=== PATIENT | male | born 1965 | race Caucasian/White ===

== ENCOUNTER 2016-07-30 10:18 | Emergency (ER) | payer MEDICAID ==
[~2016-07-30] VITALS: Ht 175.3 cm; Wt 96.0 kg
[~2016-07-30 10:18] MED LIST: ASPI81TA11 PO; LISI-363 PO
[2016-07-30 10:34] VITALS: BP 200/131; PULSE 115; RESP 16; TEMP 98.3; O2SAT 97
--- NOTE | 2016-07-30 11:09 | PD ---
HPI Chief Complaint: Complaint Time Seen by Provider: 10:54 Travel History International Travel<30 days: No Contact w/Intl Traveler<30days: No Traveled to known affect area: No History of Present Illness HPI Patient is a 51-year-old male who presents to emergency room with complaints of urinary urgency and retention. Patient reports that since last night, he has been having difficulty emptying his bladder, reports that he has urinary urgency , reports that he is unable to have a good flow of urine. Denies history of urinary retention in the past, denies dysuria, denies penile discharge. Denies fever/chills. Denies abdominal pain. Reports that he has never seen a urologist in the past and has never been diagnosed with an STD. Reports concern as he has noticed increased pain to his left groin since last night. No other c /o. PFSH Past Medical History Cardiovascular Problems: Yes (HTN) Hypertension: Yes Past Surgical History Other Surgery: Yes (HERNIA REPAIR) Social History Alcohol Use: Yes (occ) Tobacco Use: Yes (1-2 cig day) Substance Use: No Allergies-Medications (Allergen,Severity, Reaction): Coded Allergies: No Known Allergies (Unverified , 07/30/16) Reported Meds & Prescriptions Reported Meds & Active Scripts Active Reported Clonidine (Clonidine HCl) 0.1 Mg Tab 0.1 Mg PO BID Review of Systems General / Constitutional: No: Fever Eyes: No: Visual changes HENT: No: Headaches Cardiovascular: No: Chest Pain or Discomfort Respiratory: No: Shortness of Breath Gastrointestinal: No: Abdominal Pain Genitourinary: Positive: Decreased Urinary Output, Hesitancy, Other (left sided groin pain), No: Dysuria Musculoskeletal: No: Pain Skin: No Rash Neurologic: No: Weakness Psychiatric: No: Depression Endocrine: No: Polydipsia Hematologic/Lymphatic: No: Easy Bruising Physical Exam Narrative GENERAL: nad, nontoxic SKIN: Warm and dry. HEAD: Atraumatic. Normocephalic. EYES: Pupils equal and round. ENT: No nasal bleeding or discharge. Mucous membranes pink and moist. NECK: Trachea midline. No JVD. CARDIOVASCULAR: Regular rate and rhythm. No murmur appreciated. RESPIRATORY: No accessory muscle use. Clear to auscultation. Breath sounds equal bilaterally. GASTROINTESTINAL: Abdomen soft, non-tender, nondistended. Hepatic and splenic margins not palpable. : exam performed with RN at bedside, pt with uncircumcised phallus, no penile discharge, patient with no obvious inguinal hernia, testicles and vertical lie, normal cremasteric reflex MUSCULOSKELETAL: No obvious deformities. No clubbing. No cyanosis. No edema. NEUROLOGICAL: Awake and alert. Motor grossly within normal limits. Normal speech. PSYCHIATRIC: Appropriate mood and affect; insight and judgment normal. Data Data Last Documented VS Vital Signs Date Time Temp Pulse Resp B/P Pulse Ox O2 Delivery O2 Flow Rate FiO2 07/30/16 10:34 98.3 115 16 200/131 97 Orders Urinalysis - C+S If Indicated (07/30/16 11:00) Gc And Chlamydia Pcr (07/30/16 11:00) Bladder Scan PRN (07/30/16 11:00) Us Testicles W Doppler (07/30/16 ) Urine Culture (07/30/16 11:00) Labs Laboratory Tests Test 07/30/16 11:00 Urine Collection Type CLEAN CATCH Urine Color YELLOW Urine Turbidity SLIGHT Urine pH 5.5 Urine Specific [place] 1.011 Urine Protein TRACE mg/dL Urine Glucose (UA) NEG mg/dL Urine Ketones NEG mg/dL Urine Occult Blood LARGE Urine Nitrite NEG Urine Bilirubin NEG Urine Leukocyte Esterase SMALL Urine RBC 25-49 /hpf Urine WBC 100-200 /hpf Urine WBC Clumps MANY Urine Squamous Epithelial 0-5 /hpf Cells Urine Bacteria MOD /hpf Microscopic Urinalysis Comment CULTURE INDICATED Urine Collection Time 11:00 [facility] Medical Decision Making Medical Screen Exam Complete: Yes Emergency Medical Condition: Yes Interpretation(s) Vital Signs Date Time Temp Pulse Resp B/P Pulse Ox O2 Delivery O2 Flow Rate FiO2 07/30/16 10:34 98.3 115 16 200/131 97 Laboratory Tests Test 07/30/16 11:00 Urine Collection Type CLEAN CATCH Urine Color YELLOW (YELLW/STRAW) Urine Turbidity SLIGHT (CLEAR) Urine pH 5.5 (5.0-8.5) Urine Specific [place] 1.011 (1.002-1.035) Urine Protein TRACE mg/dL (NEG-TRACE) Urine Glucose (UA) NEG mg/dL (NEG) Urine Ketones NEG mg/dL (NEG) Urine Occult Blood LARGE (NEG) Urine Nitrite NEG (NEG) Urine Bilirubin NEG (NEG) Urine Leukocyte Esterase SMALL (NEG) Urine RBC 25-49 /hpf (0-3) Urine WBC 100-200 /hpf (0-5) Urine WBC Clumps MANY (NONE) Urine Squamous Epithelial 0-5 /hpf (0-5) Cells Urine Bacteria MOD /hpf (NONE) Microscopic Urinalysis Comment CULTURE INDICATED Urine Collection Time 11:00 Last Impressions Scrotum Ultrasound 07/30/16 0000 Signed Impressions: Service Date/Time: Saturday, July 30, 2016 12:03 - CONCLUSION: 1. 8mm x 6 mm cyst in the right epididymis. 2. Blood flow to the testicles is intact. 3. No intratesticular mass is seen. Marcio Greene MD Differential Diagnosis Urethritis, acute urinary retention, UTI, testicular torsion, inguinal hernia, epididymitis Narrative Course Patient is a 51-year-old male who presents to emergency room with complaints of urinary hesitancy and possibly urinary retention. Patient reports that symptoms began last night, reports that he has been having difficulty with making good urine flow and reports that he has never had this problem in the past. Denies urethral discharge, denies dysuria when he does make urine sample. exam was performed with RN at bedside- benign exam. Bladder scan ordered to evaluate for acute urinary retention. Will obtain UA and order g/c as symptoms could be secondary to urethritis as well as uti. Patient adamantly denies possibility of STDs. Testicular US ordered to evaluate for possible swelling and inflammation of the epididymis vs testicular torsion. Post void residual 29 - patient is not in acute urinary retention UA positive for infection, testicular ultrasound with 8 mm x 6 mm cyst in the right epididymis. Discussed with patient need to follow-up with urologist as outpatient. Patient was given a copy of his ultrasound report. Patient will return to ER as needed. Signs and symptoms of testicular torsion was reviewed with patient -patient understands when to return to the emergency reviewed. Diagnosis Primary Impression: UTI (urinary tract infection) Qualified Code: N30.01 - Acute cystitis with hematuria Additional Impression: Epididymal cyst Referrals: Ronen Wyamn DO Patient Instructions: General Instructions Departure Forms: Tests/Procedures, Work Release Enter return to work date: Aug 01, 2016 Additional Instructions: Please return to the emergency room as needed Please follow up with cultures from today Please call urologist first thing in the morning for earliest follow-up Please bring your ultrasound report to your urologist office for follow-up Return to the emergency room if symptoms progress or worsen or return Med/Other Pt SpecificInfo: Prescription(s) given Scripts Levofloxacin (Levaquin)750 Mg [id number] Mg PO DAILY 7 Days Ref 0 Prov:Damari Weems DO 07/30/16 Disposition: 01 DISCHARGE HOME Condition: Stable Damari Weems DO Jul 30, 2016 11:09
[2016-07-30] MEDS ORDERED: CLON0.1T PO (11:15)
[2016-07-30 11:18] LABS: BLOOD, URINE LARGE (NEG); GLUCOSE,URINE NEG (NEG); KETONE, URINE NEG (NEG); NITRITE,URINE NEG (NEG); PH, URINE 5.5 (5.0-8.5)
[2016-07-30 11:23] LABS: METHOD OF COLLECTION CLEAN CATCH; URINE COLOR YELLOW (YELLW/STRAW)
[2016-07-30 11:24] LABS: WBC, URINE 100-200 /hpf (0-5)
[2016-07-30 11:25] LABS: BACTERIA, URINE MOD /hpf; COMMENT (UR) CULTURE INDICATED; CULTURE IF INDICATED CULTURE INDICATED; SQUAMOUS EPITHELIAL CELL URINE 0-5 /hpf (0-5)
--- NOTE | 2016-07-30 13:07 | RADHPO ---
EXAM DATE/TIME: 07/30/2016 12:03 [facility] COMPARISON: No previous studies available for comparison. INDICATIONS : Testicle pain. MEDICAL HISTORY : Hypertension. Urinary urgency. Left groin pain. SURGICAL HISTORY : Hernia repair. ENCOUNTER: Initial ACUITY: 1 day PAIN SCORE: 3/10 LOCATION: Left testicle. MEASUREMENTS: RIGHT TESTICLE: 2.9 x 2.4 x 4.0cm LEFT TESTICLE: 3.4 x 2.2 x 3.7cm FINDINGS: RIGHT TESTICLE: Homogeneous echotexture without intra or extratesticular mass. Blood flow is symmetric and within no rmal limits. No hydrocele or varicocele. Epididymis demonstrates a 0.8 x 0.4 x 0.6 cm cyst. LEFT TESTICLE: Homogeneous echotexture without intra or extratesticular mass. Blood flow is symmetric and within no rmal limits. No hydrocele or varicocele. Epididymis is within normal limits. SCROTUM: Within normal limits. CONCLUSION: 1. 8mm x 6 mm cyst in the right epididymis. 2. Blood flow to the testicles is intact. 3. No intratesticular mass is seen. Marcio Greene MD on July 30, 2016 at 13:04 Board Certified Radiologist. This report was verified electronically.
[2016-07-30] MEDS ORDERED: LEVA750T PO (13:34)
[2016-07-30] MEDS ORDERED: LEVOFLOXACIN 750 MG TAB PO ONE (13:45)
[2016-07-30 13:50] VITALS: BP 191/88
[2016-07-30 16:14] LABS: CHLAMYDIA PCR NOT DETECTED (NOT DETECT); NEISSERIA PCR NOT DETECTED (NOT DETECT)
== END 2016-07-30 13:51 | disposition home or self-care (01) ==
LOC: PHED 10:18
DX: N30.01 Acute cystitis with hematuria (principal); B96.89 Other specified bacterial agents as the cause of diseases classified elsewhere; N50.3 Cyst of epididymis
CPT/HCPCS: 76870; 81001; 87077; 87086; 87186; 87491; 87591; 93975

== ENCOUNTER 2017-09-22 10:49 | Inpatient (IN) | payer MEDICAID ==
[2017-09-22] VITALS (17 sets, daily range): BP systolic 131–215; BP diastolic 57–129; PULSE 93–122; RESP 16–21; TEMP 97.8–98.6; O2SAT 0–100
[~2017-09-22] VITALS: Ht 175.3 cm; Wt 96.7 kg
[~2017-09-22 10:49] MED LIST changes: -ASPI81TA11 PO; +CLON0.1T PO; +LEVA750T PO; -LISI-363 PO
[2017-09-22] MEDS ORDERED: SODIUM CHLOR 0.9% 1000 ML INJ 1,000 ML IV ONE (10:53)
--- NOTE | 2017-09-22 11:10 | PD ---
HPI Chief Complaint: Stroke alert Time Seen by Provider: 10:53 Travel History International Travel<30 days: No Contact w/Intl Traveler<30days: No Traveled to known affect area: No History of Present Illness HPI The patient is a 52-year-old male who presents to the emergency department via EMS for a stroke alert. The patient's onset of symptoms were at 10 AM while at work. The patient states he became dizzy and then noticed he had difficulty using the left upper extremity. He then had some numbness and tingling the left upper extremity that extended to the leg. The patient then noted difficulty walking secondary to weakness of the left leg. He denies any accompanying headache. He does have a history of hypertension but denies any known history of hyperlipidemia, diabetes, or previous TIA/CVA. EMS states the patient's blood glucose was greater than 100 upon their arrival. Upon arrival to the emergency department the patient does note some weakness and numbness to left upper extremity as well as numbness to left lower extremity. He denies any chest pain or shortness of breath. Symptoms are moderate. Onset of symptoms at 10 AM per EMS. PFSH Past Medical History Cardiovascular Problems: Yes (HTN) Hypertension: Yes Past Surgical History Other Surgery: Yes (HERNIA REPAIR) Social History Alcohol Use: Yes (occ) Tobacco Use: Yes (1-2 cig day) Substance Use: No Allergies-Medications (Allergen,Severity, Reaction): Coded Allergies: No Known Allergies (Verified Adverse Reaction, Unknown, 09/22/17) Reported Meds & Prescriptions Reported Meds & Active Scripts Active Review of Systems Except as stated in HPI: all other systems reviewed are Neg General / Constitutional: No: Fever Eyes: No: Blurred Vision HENT: Positive: Lightheadedness, No: Headaches Cardiovascular: No: Chest Pain or Discomfort Respiratory: No: Shortness of Breath Gastrointestinal: No: Nausea, Vomiting, Abdominal Pain Musculoskeletal: Positive: Weakness Neurologic: Positive: Weakness, Dizziness, Focal Abnormalities, Paresthesia, Sensory Disturbance, No: Headache, Change in Mentation Physical Exam Narrative GENERAL: Awake, alert, pleasant 52-year-old male who appears his stated age and is in no acute respiratory distress. SKIN: Focused skin assessment warm/dry. HEAD: Atraumatic. Normocephalic. EYES: Pupils equal and round. 4 mm bilateral and reactive. ENT: No nasal bleeding or discharge. Mucous membranes pink and moist. NECK: Trachea midline. No JVD. CARDIOVASCULAR: Regular, tachycardic with a heart rate of 105. RESPIRATORY: No accessory muscle use. Clear to auscultation. Breath sounds equal bilaterally. GASTROINTESTINAL: Abdomen soft, non-tender, nondistended. No rebound tenderness. MUSCULOSKELETAL: No obvious deformities. No clubbing. No cyanosis. No edema. NEUROLOGICAL: Awake and alert. No obvious cranial nerve deficits. Patient is alert and oriented 4. EOMs are intact. No asymmetry of the face. Tongue is midline. Drift noted to the left arm and left leg. Decreased sensation to the left arm, left face, and left leg. Heel to frazier is normal. Finger to nose on left was abnormal, right was normal. Follow simple commands. PSYCHIATRIC: Appropriate mood and affect; insight and judgment normal. Data Data Last Documented VS Vital Signs Date Time Temp Pulse Resp B/P (MAP) Pulse Ox O2 Delivery O2 Flow Rate FiO2 09/22/17 11:48 97.8 93 17 137/80 (99) 98 Room Air Orders Orders Activity Bed Rest (09/22/17 ) Electrocardiogram (09/22/17 ) I-Stat Profile (09/22/17 10:53) Prothrombin Time / Inr (Pt) (09/22/17 10:53) Act Partial Throm Time (Ptt) (09/22/17 10:53) Complete Blood Count With Diff (09/22/17 10:53) Fibrinogen (09/22/17 10:53) Creatine Kinase (Cpk) (09/22/17 10:53) Troponin I (09/22/17 10:53) Ua Includes Microscopic (09/22/17 10:53) Drug Screen, Random Urine (09/22/17 10:53) Type And Screen (09/22/17 10:53) Ct Brain W/O Iv Contrast(Rout) (09/22/17 ) Cta Brain W Iv Contrast W 3d (09/22/17 10:53) Cta Neck W Iv Contrast W 3d (09/22/17 10:53) Consult Neurology (09/22/17 ) Blood Glucose (09/22/17 10:53) Ecg Monitoring (09/22/17 10:53) Neuro Checks Q2HX12,Q4H (09/22/17 10:53) Nursing Bedside Swallow Assess .ONCE (09/22/17 10:53) Iv Access Insert/Monitor (09/22/17 10:53) NPO (09/22/17 10:53) Oximetry (09/22/17 10:53) Resp Oxygen Nc Stroke (09/22/17 ) Sodium Chlor 0.9% 1000 Ml Inj (Ns 1000 M (09/22/17 10:53) Cath For Specimen (09/22/17 10:53) Nicardipine Inj (Cardene Inj) (09/22/17 11:00) (Hub Use Only)Inp Phy Cons/Ref (09/22/17 ) (Hub Use Only)Inp Phy Cons/Ref (09/22/17 ) Labetalol Inj (Trandate Inj) (09/22/17 11:45) Admit Order (Ed Use Only) (09/22/17 11:56) ^ Medication Admin Instruction (09/22/17 11:56) Notify Dr: Other (09/22/17 11:56) Phosphorus (Po4) (09/22/17 11:56) Magnesium (Mg) (09/22/17 11:56) Potassium Chlor 40 Meq Premix (Kcl 40 Me (09/22/17 12:00) Potassium Chlor 20 Meq Premix (Kcl 20 Me (09/22/17 12:00) Potassium Chloride Eff (K-Lyte Cl Eff) (09/22/17 12:00) Potassium Chlor 40 Meq Premix (Kcl 40 Me (09/22/17 12:00) Potassium Chlor 20 Meq Premix (Kcl 20 Me (09/22/17 12:00) Magnesium Sulfate Inj (Magnesium Sulfate (09/22/17 12:00) Magnesium Oxide (Mag-Ox) (09/22/17 12:00) Magnesium Sulfate Inj (Magnesium Sulfate (09/22/17 12:00) Potassium Phosphate (K-Phos) (09/22/17 12:00) Sodium Phosphate Inj (Sodium Phosphate I (09/22/17 12:00) Potassium Phosphate (K-Phos) (09/22/17 12:00) Potassium Phosphate Inj (Potassium Phosp (09/22/17 12:00) Labs Laboratory Tests Test 09/22/17 09:00 09/22/17 10:50 White Blood Count 10.4 TH/MM3 Red Blood Count 5.00 MIL/MM3 Hemoglobin 16.3 GM/DL Bedside Hemoglobin 16.0 G/DL Hematocrit 45.7 % Bedside Hematocrit 47.0 % Mean Corpuscular Volume 91.4 FL Mean Corpuscular Hemoglobin 32.6 PG Mean Corpuscular Hemoglobin Concent 35.6 % Red Cell Distribution Width 12.5 % Platelet Count 296 TH/MM3 Mean Platelet Volume 9.1 FL Neutrophils (%) (Auto) 62.5 % Lymphocytes (%) (Auto) 25.3 % Monocytes (%) (Auto) 8.6 % Eosinophils (%) (Auto) 2.5 % Basophils (%) (Auto) 1.1 % Neutrophils # (Auto) 6.5 TH/MM3 Lymphocytes # (Auto) 2.6 TH/MM3 Monocytes # (Auto) 0.9 TH/MM3 Eosinophils # (Auto) 0.3 TH/MM3 Basophils # (Auto) 0.1 TH/MM3 CBC Comment DIFF FINAL Differential Comment Prothrombin Time 10.4 SEC Prothromb Time International Ratio 1.0 RATIO Activated Partial Thromboplast Time 22.9 SEC Fibrinogen 269 mg/dL Bedside Sodium 139 MMOL/L Bedside Potassium 3.2 MMOL/L Bedside Chloride 98 MMOL/L Bedside Blood Urea Nitrogen 10 MG/DL Bedside Creatinine 1.0 MG/DL Bedside Glucose 107 MG/DL Phosphorus Level 2.2 MG/DL Magnesium Level 1.9 MG/DL Total Creatine Kinase 146 U/L Troponin I LESS THAN 0.02 NG/ML MDM Medical Screen Exam Complete: Yes Emergency Medical Condition: Yes Medical Record Reviewed: Yes EKG Prior to Arrival: Yes Differential Diagnosis Differential diagnoses include CVA, TIA, hypertensive encephalopathy, hypertensive emergency, hypertensive urgency, intracranial hemorrhage, complicated migraine, seizure. Narrative Course A stroke alert was called. IV was established, labs are drawn and sent, the patient went immediately to CT for CT the brain. I discussed the patient with the on-call neurologist, Dr. Valero, who recommends Cardene in case TPA is administered. The patient went immediately to CT, however, CT the brain reveals an intracranial hemorrhage in the right aspect of the brain which would be consistent with his left-sided symptoms. Therefore, patient was placed on Cardene with a goal of systolic less than 160 and diastolic less than 90. I discussed the patient with the reading radiologist, Dr. Johnson, who agrees the patient has a right thalamic intracranial hemorrhage, most likely hypertensive. Therefore, a call was placed to the on-call neurosurgeon, Dr. Nguyen, at 11: 08 AM. I discussed the patient with the OR staff nurses in regards to the intraparenchymal hemorrhage. No acute intervention needed. Patient's blood pressure did improve with labetalol and Cardene drip. Head of bed was placed up at 30. I discussed the patient with the on-call intensive surgical care unit scout, Dr. Martinez, who agrees with admission. Critical Care Narrative Aggregate critical care time was 45 minutes. Time to perform other separately billable procedures was not included in the critical care time. My time did not include minutes spent treating any other patients simultaneously or on activities that did not directly contribute to the patient's treatment. The services I provided to this patient were to treat and/or prevent clinically significant deterioration that could result in: Herniation, intracranial hemorrhage, encephalopathy. I provided critical care services requiring my management, as noted below: Chart data review, documentation time, medication orders and management, vital sign assessments/reviewing monitor data, ordering and reviewing lab tests, ordering and interpreting/reviewing x-rays and diagnostic studies, care of the patient and discussion of the patient with the admitting physicians. Stroke Alert NIHSS NIH Stroke Scale Result: 4 NIHSS Time Completed: 10:50 Thrombolytic Contraindications Contraindications: CT Intracranial Bleed Procedures Interpretation(s) CT the brain reveals 17 mm acute right thalamic parenchymal bleed. EKG reveals sinus tachycardia with a heart rate of 104. Nonspecific T-wave changes. Last Impressions Head CT 09/22/17 0000 Signed Impressions: Service Date/Time: Friday, September 22, 2017 11:00 - CONCLUSION: 17 mm acute right thalamic parenchymal bleed. Austin Johnson MD Laboratory Tests Test 09/22/17 10:50 White Blood Count 10.4 TH/MM3 Red Blood Count 5.00 MIL/MM3 Hemoglobin 16.3 GM/DL Bedside Hemoglobin 16.0 G/DL Hematocrit 45.7 % Bedside Hematocrit 47.0 % Mean Corpuscular Volume 91.4 FL Mean Corpuscular Hemoglobin 32.6 PG Mean Corpuscular Hemoglobin Concent 35.6 % Red Cell Distribution Width 12.5 % Platelet Count 296 TH/MM3 Mean Platelet Volume 9.1 FL Neutrophils (%) (Auto) 62.5 % Lymphocytes (%) (Auto) 25.3 % Monocytes (%) (Auto) 8.6 % Eosinophils (%) (Auto) 2.5 % Basophils (%) (Auto) 1.1 % Neutrophils # (Auto) 6.5 TH/MM3 Lymphocytes # (Auto) 2.6 TH/MM3 Monocytes # (Auto) 0.9 TH/MM3 Eosinophils # (Auto) 0.3 TH/MM3 Basophils # (Auto) 0.1 TH/MM3 CBC Comment DIFF FINAL Differential Comment Prothrombin Time 10.4 SEC Prothromb Time International Ratio 1.0 RATIO Activated Partial Thromboplast Time 22.9 SEC Fibrinogen 269 mg/dL Bedside Sodium 139 MMOL/L Bedside Potassium 3.2 MMOL/L Bedside Chloride 98 MMOL/L Bedside Blood Urea Nitrogen 10 MG/DL Bedside Creatinine 1.0 MG/DL Bedside Glucose 107 MG/DL Physician Communication Physician Communication A call was placed to the on-call neurosurgeon and scout. I discussed the patient with Dr. Martinez who agrees with admission. Diagnosis Diagnosis: Primary Impression: Intracranial hemorrhage Admitting Physician Requests: Admit Scripts No Active Prescriptions or Reported Meds Condition: Serious Narinder Chirinos MD Sep 22, 2017 11:10
[2017-09-22] MEDS: niCARdipine INJ 25 MG in SODIUM CHLOR 0.9% 250 ML INJ 240 ML IV PRN ×3 (11:11→22:51)
--- NOTE | 2017-09-22 11:12 | RADRPT ---
EXAM DATE/TIME: 09/22/2017 11:00 [facility] COMPARISON: CT BRAIN W/O CONTRAST, May 01, 2015, 5:34. INDICATIONS : Stroke alert. Left sided arm and leg weakness and tingling. RADIATION DOSE: 38.95 CTDIvol (mGy) This report was called by Dr. Johnson to Dr. Chirinos at 11: 07 AM on 09/22/17. MEDICAL HISTORY : Hypertension. SURGICAL HISTORY : None. ENCOUNTER: Initial ACUITY: 1 day PAIN SCALE: 0/10 LOCATION: cranial TECHNIQUE: Multiple contiguous axial images were obtained of the head. Using automated exposure control and adj ustment of the mA and/or kV according to patient size, radiation dose was kept as low as reasonably a chievable to obtain optimal diagnostic quality images. DICOM format image data is available electro nically for review and comparison. FINDINGS: CEREBRUM: The ventricles are normal for age. There is evidence of an acute right thalamic parenchymal bleed juve suring 17 mm. No acute infarct is noted No extra-axial fluid collections are seen. POSTERIOR FOSSA: The cerebellum and brainstem are intact. The 4th ventricle is midline. The cerebellopontine angle i s unremarkable. EXTRACRANIAL: The visualized portion of the orbits is intact. Minimal mucosal thickening is noted within the left m axillary sinus. SKULL: The calvaria is intact. No evidence of skull fracture. CONCLUSION: 17 mm acute right thalamic parenchymal bleed. Austin Johnson MD on September 22, 2017 at 11:05 Board Certified Radiologist. This report was verified electronically.
[2017-09-22 11:14] LABS: AUTOMATED NEUTROPHIL # 6.5 TH/MM3 (1.8-7.7); BASOPHIL # 0.1 TH/MM3 (0-0.2); BASOPHIL % 1.1 % (0.0-2.0); EOSINOPHIL # 0.3 TH/MM3 (0-0.4); EOSINOPHIL % 2.5 % (0.0-4.0); HEMATOCRIT 45.7 % (39.0-51.0); HEMOGLOBIN 16.3 GM/DL (13.0-17.0); LYMPH % 25.3 % (9.0-44.0); LYMPHOCYTE # 2.6 TH/MM3 (1.0-4.8); MEAN CELL VOLUME 91.4 FL (80.0-100.0); MEAN CORPUSCULAR HEMOGLOBIN 32.6 PG (27.0-34.0); MEAN CORPUSCULAR HGB CONC 35.6 % (32.0-36.0); MEAN PLATELET VOLUME 9.1 FL (7.0-11.0); MONO % 8.6 % (0.0-8.0); MONOCYTE # 0.9 TH/MM3 (0-0.9); NEUT % 62.5 % (16.0-70.0); PLATELET COUNT 296 TH/MM3 (150-450); RED CELL DISTRIBUTION WIDTH 12.5 % (11.6-17.2); WHITE BLOOD COUNT 10.4 TH/MM3 (4.0-11.0)
[2017-09-22 11:24] LABS: PROTHROMBIN TIME - PATIENT 10.4 SEC (9.8-11.6)
[2017-09-22 11:33] LABS: TROPONIN I LESS THAN 0.02 NG/ML (0.02-0.05)
[2017-09-22] MEDS ORDERED: LABETALOL HCL 100 MG/20 ML VIAL IV PUSH ONE (11:45)
[2017-09-22] MEDS ORDERED: MAGNESIUM HYDROXIDE SUSP 30 ML CUP PO PRN (12:00)
[2017-09-22] MEDS ORDERED: POTASSIUM CHLORIDE 25 MEQ EFFERVESCENT TAB PO PRN (12:00)
[2017-09-22] MEDS ORDERED: CHLORHEXIDINE GLUCONATE 2 % 1 PACK (2 CLOTHS) TOP PRN (12:00)
[2017-09-22] MEDS ORDERED: SODIUM PHOSPHATE INJ 30 MMOL in SODIUM CHLOR 0.9% 250 ML INJ 240 ML IV PRN (12:00)
[2017-09-22] MEDS ORDERED: ACETAMINOPHEN 325 MG TAB PO PRN (12:00)
[2017-09-22] MEDS ORDERED: MAGNESIUM OXIDE 400 MG TAB PO PRN (12:00)
[2017-09-22] MEDS ORDERED: POTASSIUM PHOSPHATE MONOBASIC 500 MG TAB PO/TUBE PRN (12:00)
[2017-09-22] MEDS ORDERED: RESP: ALBUTEROL 2.5 MG/IPRATROPIUM 0.5 MG NEB (PRN) INH (12:00)
[2017-09-22] MEDS ORDERED: POTASSIUM CHLOR 20 MEQ PREMIX 100 ML IV PRN ×2 (12:00)
[2017-09-22] MEDS ORDERED: MAGNESIUM SULFATE INJ 4 GM in SODIUM CHLORIDE 0.9% INJ 92 ML IV PRN (12:00)
[2017-09-22] MEDS ORDERED: POTASSIUM PHOSPHATE MONOBASIC 500 MG TAB PO PRN (12:00)
[2017-09-22] MEDS ORDERED: POTASSIUM PHOSPHATE INJ 30 MMOL in SODIUM CHLOR 0.9% 250 ML INJ 250 ML IV PRN (12:00)
[2017-09-22] MEDS ORDERED: MISCELLANEOUS NURSING INFORMATION XX SCH (12:00)
[2017-09-22] MEDS ORDERED: POTASSIUM CHLOR 40 MEQ PREMIX 100 ML IV PRN ×2 (12:00)
[2017-09-22] MEDS ORDERED: MAGNESIUM SULFATE INJ 2 GM in SODIUM CHLORIDE 0.9% INJ 96 ML IV PRN (12:00)
[2017-09-22] MEDS: FAMOTIDINE 20 MG TAB PO SCH ×2 (12:32→21:22)
[2017-09-22] MEDS: NS + KCL 20 MEQ INJ 1,000 ML IV SCH ×2 (12:33→21:23)
[2017-09-22 12:45] LABS: MAGNESIUM 1.9 MG/DL (1.5-2.5); PHOSPHORUS 2.2 MG/DL (2.5-4.9)
[2017-09-22 12:59] LABS: BILIRUBIN, URINE NEG (NEG); BLOOD, URINE NEG (NEG); GLUCOSE,URINE NEG (NEG); KETONE, URINE NEG (NEG); MUCUS URINE FEW /lpf (OCC); NITRITE,URINE NEG (NEG); URINE COLOR LIGHT-YELLOW (YELLW/STRAW); URINE LEUKOCYTE ESTERASE NEG (NEG)
[2017-09-22] MEDS ORDERED: THIAMINE INJ 100 MG in SODIUM CHLORIDE 0.9% INJ 100 ML IV SCH (13:15)
--- NOTE | 2017-09-22 13:22 | HHI.HP ---
HPI Service Critical Care Medicine Primary Care Physician No Primary Care Physician Admission Diagnosis Right intraparenchymal hemorrhage Diagnosis: (1) Acute right thalamic hemorrhage Diagnosis: Principal (2) Hypertensive emergency Diagnosis: Principal (3) Hypokalemia Diagnosis: Principal (4) Hypophosphatemia Diagnosis: Principal (5) Hypertension Diagnosis: Secondary Chief Complaint: Stroke alert, acute right thalamic hemorrhage Travel History International Travel<30 Days: No Contact w/Intl Traveler <30 Da: No Traveled to Known Affected Are: No History of Present Illness Patient is a 52-year-old male who presented to the [facility] emergency department via EMS as a stroke alert. While at work patient felt dizzy and had difficulty using left upper extremity. This progressed to numbness and tingling of the left side of the body with associated difficulty walking. Patient states that he had been taking lisinopril prior for hypertension but discontinued it by himself several years ago due to lack of insurance. He occasionally checks his blood pressure at home last checked 1 month ago it was 210/110 approximately, but he did not seek any treatment as he felt fine. In the ER initial blood pressure was 236/120. Neurology Dr. Valero was also informed about stroke alert. A stat CT of the head showed acute 17 mm right thalamic hemorrhage. Cardene was initiated and titrated up to keep systolic blood pressure less than 140/90. Neurosurgery Dr. Nguyen was also consulted. I evaluated the patient in the ED. Currently patient remains on Cardene infusion, his blood pressure control is better. He feels left upper extremity strength may be improved slightly. I explained to him that more than likely management will be medical unless there is expansion of the bleed or intraventricular extension. A repeat CT of the head will be performed tomorrow. His platelet count and coags are normal at this time Review of Systems ROS Limitations: Other (as per HPI) Past Family Social History Allergies: Coded Allergies: No Known Allergies (Verified Adverse Reaction, Unknown, 09/22/17) Past Medical History Hypertension, uncontrolled Daily alcohol use Tobacco use Past Surgical History Hernia repair Reported Medications None Stop taking lisinopril years ago Active Ordered Medications Cardene gtt Family History Mother had hypertension Social History Smokes 6 cigarettes daily, drinks half a pint of rum daily Physical Exam Vital Signs Vital Signs Date Time Temp Pulse Resp B/P (MAP) Pulse Ox O2 Delivery O2 Flow Rate FiO2 09/22/17 13:03 97.8 100 17 139/79 (99) 99 Room Air 09/22/17 12:33 103 136/80 09/22/17 12:00 98 18 141/85 (103) 98 Room Air 09/22/17 11:48 97.8 93 17 137/80 (99) 98 Room Air 09/22/17 11:44 98 17 131/98 (109) 98 Room Air 09/22/17 11:35 97.8 116 17 162/94 (116) 98 Room Air 09/22/17 11:34 108 166/94 09/22/17 11:28 108 172/104 09/22/17 11:23 108 180/115 09/22/17 11:15 105 210/118 09/22/17 11:11 105 236/120 09/22/17 10:53 110 17 98 Room Air 09/22/17 10:52 18 98 Room Air 09/22/17 10:52 97.8 104 18 215/129 (157) 97 09/22/17 10:52 98 Room Air Physical Exam GENERAL: Awake, alert, pleasant 52-year-old male who appears his stated age and is in no acute respiratory distress. SKIN: Focused skin assessment warm/dry. HEAD: Atraumatic. Normocephalic. EYES: Pupils equal and round. 4 mm bilateral and reactive. ENT: No nasal bleeding or discharge. Mucous membranes pink and moist. NECK: Trachea midline. No JVD. CARDIOVASCULAR: Regular, tachycardic with a heart rate of 105. RESPIRATORY: No accessory muscle use. Clear to auscultation. Breath sounds equal bilaterally. GASTROINTESTINAL: Abdomen soft, non-tender, nondistended. No rebound tenderness. MUSCULOSKELETAL: No obvious deformities. No clubbing. No cyanosis. No edema. NEUROLOGICAL: Awake and alert. No obvious cranial nerve deficits. Patient is alert and oriented 4. EOMs are intact. No asymmetry of the face. Tongue is midline. Drift noted to the left arm and left leg. Decreased sensation to the left arm, left face, and left leg. Heel to frazier is normal. Finger to nose on left was abnormal, right was normal. Follow simple commands. PSYCHIATRIC: Appropriate mood and affect; insight and judgment normal. Laboratory Laboratory Tests Test 09/22/17 09:00 09/22/17 10:50 Urine Color LIGHT-YELLOW Urine Turbidity CLEAR Urine pH 7.0 Urine Specific [place] 1.012 Urine Protein TRACE Urine Glucose (UA) NEG Urine Ketones NEG Urine Occult Blood NEG Urine Nitrite NEG Urine Bilirubin NEG Urine Urobilinogen LESS THAN 2.0 Urine Leukocyte Esterase NEG Urine Mucus FEW Urine Opiates Screen NEG Urine Barbiturates Screen NEG Urine Amphetamines Screen NEG Urine Benzodiazepines Screen NEG Urine Cocaine Screen NEG Urine Cannabinoids Screen NEG White Blood Count 10.4 Red Blood Count 5.00 Hemoglobin 16.3 Bedside Hemoglobin 16.0 Hematocrit 45.7 Bedside Hematocrit 47.0 Mean Corpuscular Volume 91.4 Mean Corpuscular Hemoglobin 32.6 Mean Corpuscular Hemoglobin Concent 35.6 Red Cell Distribution Width 12.5 Platelet Count 296 Mean Platelet Volume 9.1 Neutrophils (%) (Auto) 62.5 Lymphocytes (%) (Auto) 25.3 Monocytes (%) (Auto) 8.6 Eosinophils (%) (Auto) 2.5 Basophils (%) (Auto) 1.1 Neutrophils # (Auto) 6.5 Lymphocytes # (Auto) 2.6 Monocytes # (Auto) 0.9 Eosinophils # (Auto) 0.3 Basophils # (Auto) 0.1 CBC Comment DIFF FINAL Differential Comment Prothrombin Time 10.4 Prothromb Time International Ratio 1.0 Activated Partial Thromboplast Time 22.9 Fibrinogen 269 Bedside Sodium 139 Bedside Potassium 3.2 Bedside Chloride 98 Bedside Blood Urea Nitrogen 10 Bedside Creatinine 1.0 Bedside Glucose 107 Phosphorus Level 2.2 Magnesium Level 1.9 Total Creatine Kinase 146 Troponin I LESS THAN 0.02 Result Diagram: 09/22/[address] of the head showed acute right thalamic hemorrhage 70 mm Septic Shock Reassessment Septic shock perfusion: reassessment completed Caprini VTE Risk Assessment Caprini VTE Risk Assessment: Mod/High Risk (score >= 2) VTE Pharm Contraindication: Hemorrhage Caprini Risk Assessment Model Point Value = 1 Point Value = 2 Point Value = 3 Point Value = 5 Age 41-60 Minor surgery BMI > 25 kg/m2 Swollen legs Varicose veins or History of unexplained or recurrent spontaneous Oral contraceptives or hormone replacement Sepsis (< 1 month) Serious lung disease, including pneumonia (< 1 month) Abnormal pulmonary function Acute myocardial infarction Congestive heart failure (< 1 month) History of inflammatory bowel disease Medical patient at bed rest Age 61-74 Arthroscopic surgery Major open surgery (> 45 min) Laparoscopic surgery (> 45 min) Malignancy Confined to bed (> 72 hours) Immobilizing plaster cast Central venous access Age >= 75 History of VTE Family history of VTE Factor V Leiden Prothrombin [id number] Lupus anticoagulant Anticardiolipin antibodies Elevated serum homocysteine Heparin-induced thrombocytopenia Other congenital or acquired thrombophilia Stroke (< 1 month) Elective arthroplasty Hip, pelvis, or leg fracture Acute spinal cord injury (< 1 month) Prophylaxis Regimen Total Risk Factor Score Risk Level Prophylaxis Regimen 0-1 Low Early ambulation 2 Moderate Order ONE of the following: *Sequential Compression Device (SCD) *Heparin 5000 units SQ BID 3-4 Higher Order ONE of the following medications: *Heparin 5000 units SQ TID *Enoxaparin/Lovenox 40 mg SQ daily (WT < 150 kg, CrCl > 30 mL/min) *Enoxaparin/Lovenox 30 mg SQ daily (WT < 150 kg, CrCl > 10-29 mL/min) *Enoxaparin/Lovenox 30 mg SQ BID (WT < 150 kg, CrCl > 30 mL/min) AND/OR *Sequential Compression Device (SCD) 5 or more Highest Order ONE of the following medications: *Heparin 5000 units SQ TID (Preferred with Epidurals) *Enoxaparin/Lovenox 40 mg SQ daily (WT < 150 kg, CrCl > 30 mL/min) *Enoxaparin/Lovenox 30 mg SQ daily (WT < 150 kg, CrCl > 10-29 mL/min) *Enoxaparin/Lovenox 30 mg SQ BID (WT < 150 kg, CrCl > 30 mL/min) AND *Sequential Compression Device (SCD) Assessment and Plan Assessment and Plan NEURO: Acute right thalamic hemorrhage Left hemiparesis Daily alcohol use -Frequent neuro checks per [facility] protocol -Repeat CT of the head in a.m. Neurosurgery Dr. Nguyen -Supplement thiamine watch for alcohol withdrawal -No indication for seizure prophylaxis -Avoid hyponatremia hyperthermia RESP: -Nasal cannula oxygen, if needed to keep saturation above 90% -DuoNeb every 6 hours as needed if needed -Counselled to quit smoking CV: Hypertensive emergency -Cardene infusion to keep systolic blood pressure less than 140 diastolic less than 90 -Start lisinopril 10 mg p.o. twice daily -Eventually will need 2D echo GI: -Speech eval and diet per recommendation -P.o. famotidine : -Monitor renal function closely. No indication for Contreras catheter ID: -Monitor closely for infection HEME: -Monitor CBC, CMP, coags ENDO: Hypokalemia Hypophosphatemia -Electrolyte replacement protocol PROPH: -Bilateral lower extremity SCDs/FROILAN. PO famotidine. Chemical DVT prophylaxis is contraindicated LINES: -Utilize peripheral IVs, central line if needed CC time 35 min Patient has acute right thalamic hemorrhage and hypertensive emergency. He is at risk for acute decompensation due to hemorrhage expansion and intraventricular hemorrhage. Closely monitor in the ICU, remains critical Code Status Full Discussed Condition With Dr. Chirinos, patient and his Debra Martinez MD Sep 22, 2017 13:22
[2017-09-22] MEDS: LISINOPRIL 10 MG TAB PO SCH ×2 (14:09→21:23)
--- NOTE | 2017-09-22 16:00 | PD.CONS ---
History of Present Illness Service Neurology Consult Requested By er Reason for Consult stroke alert Primary Care Physician No Primary Care Physician History of Present Illness 52-year-old male admitted for ICH. initially called stroke alert. ct brain showed rt thalamic ICH. not tpa candidate. bp 215/129 in er. placed on cardene gtt. pt states he lost his insurance and has been unable to get medication refills. is supposed to be on bp meds. no hx of stroke. mild headache, left ue numbness. Review of Systems ROS Limitations: Other (as per HPI) Past Family Social History Allergies: Coded Allergies: No Known Allergies (Verified Adverse Reaction, Unknown, 09/22/17) Past Medical History Hypertension, uncontrolled Tobacco use Past Surgical History Hernia repair Reported Medications None at present Family History Mother had hypertension Social History + tob, et[place]. no illicit drugs Review of Systems All other ROS: ROS reviewed as documented in chart Past Family Social History Allergies: Coded Allergies: No Known Allergies (Verified Adverse Reaction, Unknown, 09/22/17) Active Ordered Medications Current Medications Medications (Trade) Dose Ordered Sig/[place] Route Start Time Stop Time Status Last Admin Nicardipine HCl 25 mg/Sodium Chloride 250 ml @ 50 mls/hr TITRATE PRN IV 09/22/17 11:00 09/22/17 13:39 Potassium Chloride 100 ml @ 50 mls/hr Q2H PRN IV 09/22/17 12:00 Potassium Chloride 100 ml @ 50 mls/hr Q2H PRN IV 09/22/17 12:00 (K-Lyte Cl Eff) 50 meq UNSCH PRN PO 09/22/17 12:00 Potassium Chloride 100 ml @ 25 mls/hr UNSCH PRN IV 09/22/17 12:00 Potassium Chloride 100 ml @ 50 mls/hr Q2H PRN IV 09/22/17 12:00 Magnesium Sulfate 4 gm/Sodium Chloride 100 ml @ 50 mls/hr UNSCH PRN IV 09/22/17 12:00 (Mag-Ox) 800 mg UNSCH PRN PO 09/22/17 12:00 Magnesium Sulfate 2 gm/Sodium Chloride 100 ml @ 50 mls/hr UNSCH PRN IV 09/22/17 12:00 (K-Phos) 2,000 mg Q4H PRN PO 09/22/17 12:00 Sodium Phosphate 30 mmol/Sodium Chloride 250 ml @ 42 mls/hr UNSCH PRN IV 09/22/17 12:00 (K-Phos) 2,000 mg UNSCH PRN PO/TUBE 09/22/17 12:00 Potassium Phosphate 30 mmol/ Sodium Chloride 260 ml @ 42 mls/hr UNSCH PRN IV 09/22/17 12:00 Potassium Chloride/Sodium Chloride 1,000 ml @ 100 mls/hr Q10H IV 09/22/17 11:59 09/22/17 12:33 (Tylenol) 650 mg Q6H PRN PO 09/22/17 12:00 (Pepcid) 20 mg Q12HR PO 09/22/17 12:00 09/22/17 12:32 (Duoneb Neb) 1 ampule Q2HR NEB PRN INH 09/22/17 12:00 Miscellaneous Information 1 Q361D XX 09/22/17 12:00 (Chlorhexidine 2% Cloth) 3 pack Taper DAILY@04 TOP 09/23/17 04:00 09/19/18 03:59 (Chlorhexidine 2% Cloth) 3 pack UNSCH PRN TOP 09/22/17 12:00 (Hiral-Colace) 1 tab BID PO 09/22/17 21:00 (Milk Of Magnesia Liq) 30 ml Q12H PRN PO 09/22/17 12:00 Thiamine HCl 100 mg/Sodium Chloride 101 ml @ 101 mls/hr DAILY IV 09/22/17 13:15 09/22/17 14:10 (Prinivil) 10 mg Q12HR PO 09/22/17 13:15 09/22/17 14:09 Exam I&O / VS 09/22/17 09/22/17 09/23/17 15:00 23:00 07:00 Intake Total 460 ml Output Total 500 ml Balance -40 ml Intake Oral 300 ml IV Total 160 ml Output Urine Total 500 ml # Voids 1 # Bowel Movements 0 Vital Signs Date Time Temp Pulse Resp B/P (MAP) Pulse Ox O2 Delivery O2 Flow Rate FiO2 09/22/17 14:40 104 129/76 09/22/17 14:05 97.8 101 16 133/84 (100) 99 Room Air 09/22/17 13:39 98 135/86 09/22/17 13:25 97.8 99 16 132/82 (99) 99 Room Air 09/22/17 13:03 97.8 100 17 139/79 (99) 99 Room Air 09/22/17 12:33 103 136/80 09/22/17 12:00 98 18 141/85 (103) 98 Room Air 09/22/17 11:48 97.8 93 17 137/80 (99) 98 Room Air 09/22/17 11:44 98 17 131/98 (109) 98 Room Air 09/22/17 11:35 97.8 116 17 162/94 (116) 98 Room Air 09/22/17 11:34 108 166/94 09/22/17 11:28 108 172/104 09/22/17 11:23 108 180/115 09/22/17 11:15 105 210/118 09/22/17 11:11 105 236/120 09/22/17 10:53 110 17 98 Room Air 09/22/17 10:52 18 98 Room Air 09/22/17 10:52 97.8 104 18 215/129 (157) 97 09/22/17 10:52 98 Room Air General: Alert and Oriented, No acute distress Eye: EOMI Respiratory: Non-labored respirations Cardiology: Normal rate Musculoskeletal: ROM Neurologic: Alert, Oriented, CN II-XII intact, Normal DTR's Psychiatric: Cooperative, Appropriate mood & affect, Normal judgement Exam Comments ox 3, looks well, sitting up, no aphasia, eomi, face sym, vff, left lower face and ue reduced pin and mild dystaxia>left leg Review/Management Diagnosis/Plan: (1) Acute right thalamic hemorrhage Status: Acute Plan: hypertensive ICH no ivh extension. usually maximal in first 6-24 hrs recs icu bp <150/100 p.t. add oral bp meds check cta brain r/o vascular lesion probable d/c in 2 days (2) Hypertensive emergency ICD Codes: I16.1 - Hypertensive emergency Status: Acute Plan: bp control dash diet compliance d/w pt needs f/u with pcp Bertrand Valero MD Sep 22, 2017 16:00
--- NOTE | 2017-09-22 18:06 | PD.CONS ---
History of Present Illness Service Neurosurgery Consult Requested By ER Reason for Consult Right thalamic bleed Primary Care Physician No Primary Care Physician Diagnoses: History of Present Illness 52-year-old gentleman with an acute onset of dizziness and left-sided weakness and numbness starting this morning. He presented to the emergency room as a stroke alert was found be very hypertensive and workup with a CT of the head reveals a small right thalamic hemorrhage without any mass effect or interventricular extension. He has been placed on a Cardene drip to regulate his hypertension. He has a mild headache denies any nausea or vomiting or denies any right sided symptoms. Review of Systems Constitutional: DENIES: Diaphoretic episodes, Fatigue, Fever, Weight gain, Weight loss, Chills, Dizziness, Change in appetite, Night Sweats Endocrine: DENIES: Heat/cold intolerance, Polydipsia, Polyuria, Polyphagia Eyes: DENIES: Blurred vision, Eye pain Ears, nose, mouth, throat: DENIES: Tinnitus, Hearing loss, Vertigo, Nasal discharge, Oral lesions, Throat pain, Hoarseness, Ear Pain, Running Nose, Epistaxis, Sinus Pain, Toothache, Odynophagia Respiratory: DENIES: Apneas, Cough, Snoring, Wheezing, Hemoptysis, Sputum production, Shortness of breath Cardiovascular: DENIES: Chest pain, Palpitations, Syncope, Dyspnea on Exertion , PND, Lower Extremity Edema, Orthopnea, Claudication Gastrointestinal: DENIES: Abdominal pain, Black stools, Bloody stools, Constipation, Diarrhea, Nausea, Vomiting, Difficulty Swallowing, Anorexia Genitourinary: DENIES: Sexual dysfunction, Urinary frequency, Urinary incontinence, Urgency, Hematuria, Dysuria, Nocturia, Penile Discharge, Testicular Pain, Testicular Swelling Musculoskeletal: DENIES: Joint pain, Muscle aches, Stiffness, Joint Swelling, Back pain, Neck pain Integumentary: DENIES: Abnormal pigmentation, Nail changes, Pruritus, Rash Hematologic/lymphatic: DENIES: Bruising, Lymphadenopathy Immunologic/allergic: DENIES: Eczema, Urticaria Neurologic: COMPLAINS OF: Headache, Localized weakness, Paresthesias, Poor Balance Psychiatric: DENIES: Anxiety, Confusion, Mood changes, Depression, Hallucinations, Agitation, Suicidal Ideation, Homicidal Ideation, Delusions Past Family Social History Allergies: Coded Allergies: No Known Allergies (Verified Adverse Reaction, Unknown, 09/22/17) Past Medical History Hypertension has been noncompliant with medications Past Surgical History Hernia repair Reported Medications None Family History Hypertension in mother Social History He is and smokes cigarettes and drinks alcohol on a daily basis. Physical Exam Vital Signs Vital Signs Date Time Temp Pulse Resp B/P (MAP) Pulse Ox O2 Delivery O2 Flow Rate FiO2 09/22/17 17:27 97.9 98 16 131/79 (96) 99 09/22/17 16:36 97.9 104 17 135/75 (95) 99 Room Air 09/22/17 15:20 98 138/77 09/22/17 14:40 104 129/76 09/22/17 14:05 97.8 101 16 133/84 (100) 99 Room Air 09/22/17 13:39 98 135/86 09/22/17 13:25 97.8 99 16 132/82 (99) 99 Room Air 09/22/17 13:03 97.8 100 17 139/79 (99) 99 Room Air 09/22/17 12:33 103 136/80 09/22/17 12:00 98 18 141/85 (103) 98 Room Air 09/22/17 11:48 97.8 93 17 137/80 (99) 98 Room Air 09/22/17 11:44 98 17 131/98 (109) 98 Room Air 09/22/17 11:35 97.8 116 17 162/94 (116) 98 Room Air 09/22/17 11:34 108 166/94 09/22/17 11:28 108 172/104 09/22/17 11:23 108 180/115 09/22/17 11:15 105 210/118 09/22/17 11:11 105 236/120 09/22/17 10:53 110 17 98 Room Air 09/22/17 10:52 18 98 Room Air 09/22/17 10:52 97.8 104 18 215/129 (157) 97 09/22/17 10:52 98 Room Air Physical Exam GENERAL: This is a well-nourished, well-developed patient, in no apparent distress. SKIN: No rashes, ecchymoses or lesions. Cool and dry. HEAD: Atraumatic. Normocephalic. No temporal or scalp tenderness. EYES: Pupils equal round and reactive. Extraocular motions intact. No scleral icterus. No injection or drainage. ENT: Nose without bleeding, purulent drainage or septal hematoma. Throat without erythema, tonsillar hypertrophy or exudate. Uvula midline. Airway patent. NECK: Trachea midline. No JVD or lymphadenopathy. Supple, nontender, no meningeal signs. CARDIOVASCULAR: Regular rate and rhythm without murmurs, gallops, or rubs. RESPIRATORY: Clear to auscultation. Breath sounds equal bilaterally. No wheezes , rales, or rhonchi. GASTROINTESTINAL: Abdomen soft, non-tender, nondistended. No hepato-splenomegaly , or palpable masses. No guarding. MUSCULOSKELETAL: Extremities without clubbing, cyanosis, or edema. No joint tenderness, effusion, or edema noted. No calf tenderness. Negative Homans sign bilaterally. NEUROLOGICAL: Awake and alert. Cranial nerves II through XII intact except mild left facial droop. Left side hemiparesis 4/5 muscle strength otherwise good strength in the right side in all muscle groups. Normal speech. Left hemisensory loss. Laboratory Laboratory Tests Test 09/22/17 09:00 09/22/17 10:50 Urine Color LIGHT-YELLOW Urine Turbidity CLEAR Urine pH 7.0 Urine Specific [place] 1.012 Urine Protein TRACE Urine Glucose (UA) NEG Urine Ketones NEG Urine Occult Blood NEG Urine Nitrite NEG Urine Bilirubin NEG Urine Urobilinogen LESS THAN 2.0 Urine Leukocyte Esterase NEG Urine Mucus FEW Urine Opiates Screen NEG Urine Barbiturates Screen NEG Urine Amphetamines Screen NEG Urine Benzodiazepines Screen NEG Urine Cocaine Screen NEG Urine Cannabinoids Screen NEG White Blood Count 10.4 Red Blood Count 5.00 Hemoglobin 16.3 Bedside Hemoglobin 16.0 Hematocrit 45.7 Bedside Hematocrit 47.0 Mean Corpuscular Volume 91.4 Mean Corpuscular Hemoglobin 32.6 Mean Corpuscular Hemoglobin Concent 35.6 Red Cell Distribution Width 12.5 Platelet Count 296 Mean Platelet Volume 9.1 Neutrophils (%) (Auto) 62.5 Lymphocytes (%) (Auto) 25.3 Monocytes (%) (Auto) 8.6 Eosinophils (%) (Auto) 2.5 Basophils (%) (Auto) 1.1 Neutrophils # (Auto) 6.5 Lymphocytes # (Auto) 2.6 Monocytes # (Auto) 0.9 Eosinophils # (Auto) 0.3 Basophils # (Auto) 0.1 CBC Comment DIFF FINAL Differential Comment Prothrombin Time 10.4 Prothromb Time International Ratio 1.0 Activated Partial Thromboplast Time 22.9 Fibrinogen 269 Bedside Sodium 139 Bedside Potassium 3.2 Bedside Chloride 98 Bedside Blood Urea Nitrogen 10 Bedside Creatinine 1.0 Bedside Glucose 107 Phosphorus Level 2.2 Magnesium Level 1.9 Total Creatine Kinase 146 Troponin I LESS THAN 0.02 Result Diagram: 09/22/17 1050 Imaging Last Impressions Head CT 09/22/17 0000 Signed Impressions: Service Date/Time: Friday, September 22, 2017 11:00 - CONCLUSION: 17 mm acute right thalamic parenchymal bleed. Austin Johnson MD Assessment and Plan Assessment and Plan 52-year-old gentleman acute onset of left-sided weakness and numbness from a right small thalamic hemorrhage consistent with a hypertensive bleed. Recommend regulation of his hypertension and rehabilitation. No neurosurgical intervention indicated. Clark Nguyen MD Sep 22, 2017 18:06
[2017-09-22] MEDS ORDERED: IODIXANOL 320 MG/ML 10 ML VIAL (for Rad CT) IVCONTRAST ONE (18:35)
--- NOTE | 2017-09-22 18:39 | RADRPT ---
EXAM DATE/TIME: 09/22/2017 17:57 [facility] COMPARISON: CT BRAIN W/O CONTRAST, September 22, 2017, 11:00. INDICATIONS : Abnormal head CT demonstrating a right thalamic intraparenchymal hemorrhage, area stroke alert patien t with left sided arm and leg weakness and tingling. IV CONTRAST: 85 cc Visipaque (iodixanol) IV ; Cumulative dose for multiple exams. RADIATION DOSE: 27.59 CTDIvol (mGy) ; Combined studies MEDICAL HISTORY : Hypertension. SURGICAL HISTORY : None. ENCOUNTER: Initial ACUITY: 1 day PAIN SCALE: Non-responsive LOCATION: cranial TECHNIQUE: Volumetric scanning was performed using a multi-row detector CT scanner. The data was post processed with a variety of visualization algorithms including full volume maximum intensity projection, multi -planar sliding thin slab reformation, curved planar reformation, and surface rendering techniques. Using automated exposure control and adjustment of the mA and/or kV according to patient size, radiat ion dose was kept as low as reasonably achievable to obtain optimal diagnostic quality images. DICO M format image data is available electronically for review and comparison. FINDINGS: There is excellent visualization of the major intracranial arteries out to the second-order branch ve ssels. There is no evidence for aneurysm, vessel truncation or stenosis, and no evidence for vascula r malformation. The known right thalamic hemorrhage is again visualized. CONCLUSION: No vascular abnormality. Bob Rudolph MD on September 22, 2017 at 18:34 Board Certified Radiologist. This report was verified electronically.
--- NOTE | 2017-09-22 19:57 | RADRPT ---
EXAM DATE/TIME: 09/22/2017 17:57 [facility] COMPARISON: No previous studies available for comparison. INDICATIONS : Stroke alert patient with left-sided arm and leg weakness and tingling. Abnormal head CT demonstratin g a right thalamic intraparenchymal hemorrhage. IV CONTRAST: 85 cc Visipaque (iodixanol) IV ; Cumulative dose for multiple exams. RADIATION DOSE: 27.95 CTDIvol (mGy) ; Combined studies MEDICAL HISTORY : Hypertension. SURGICAL HISTORY : None. ENCOUNTER: Initial ACUITY: 1 day PAIN SCALE: 3/10 LOCATION: neck Elevated flow velocities and ICA/CCA ratios have been found to correlate with increased degrees of vessel stenosis, calculated as percentage of diameter relative to a normal segment of distal ICA/CCA. TECHNIQUE: Volumetric scanning was performed using a multirow detector CT scanner. The data was post processed with a variety of visualization algorithms including full-volume maximum intensity projection, multip lanar sliding thin-slab reformation, curved-planar reformation, and surface-rendering techniques. Us ing automated exposure control and adjustment of the mA and/or kV according to patient size, radiatio n dose was kept as low as reasonably achievable to obtain optimal diagnostic quality images. DICOM f ormat image data is available electronically for review and comparison. FINDINGS: AORTIC ARCH: There is a three-vessel origin of the great vessels from the aorta. No evidence of ostial narrowing. RIGHT CAROTID: The common carotid artery is intact. The carotid bulb has a normal configuration without ulceration o r narrowing. The internal carotid artery lumen is smooth without stenosis. The external carotid mariza ry is intact. LEFT CAROTID: The common carotid artery is intact. The carotid bulb has a normal configuration without ulceration or narrowing. The internal carotid artery lumen is smooth without stenosis. The external carotid ar diego is intact. VERTEBRALS: The vertebral arteries have a symmetric diameter. No stenotic lesions are seen. CONCLUSION: Unremarkable exam with no evidence of stenosis or occlusion. Bob Rudolph MD on September 22, 2017 at 19:54 Board Certified Radiologist. This report was verified electronically.
[2017-09-22] MEDS: DOCUSATE SODIUM 50 MG/SENNA 8.6 MG TAB PO SCH (21:23)
[2017-09-23] VITALS (11 sets, daily range): BP systolic 114–162; BP diastolic 59–100; PULSE 75–107; RESP 16–26; TEMP 96.5–98.6; O2SAT 95–98
[2017-09-23 03:46] LABS: AUTOMATED NEUTROPHIL # 8.7 TH/MM3 (1.8-7.7); BASOPHIL # 0.1 TH/MM3 (0-0.2); BASOPHIL % 1.2 % (0.0-2.0); EOSINOPHIL # 0.2 TH/MM3 (0-0.4); HEMATOCRIT 43.1 % (39.0-51.0); MEAN CELL VOLUME 91.9 FL (80.0-100.0); MEAN CORPUSCULAR HEMOGLOBIN 31.9 PG (27.0-34.0); MEAN CORPUSCULAR HGB CONC 34.7 % (32.0-36.0); MEAN PLATELET VOLUME 8.9 FL (7.0-11.0); MONO % 7.5 % (0.0-8.0); MONOCYTE # 0.9 TH/MM3 (0-0.9); NEUT % 72.3 % (16.0-70.0); PLATELET COUNT 267 TH/MM3 (150-450); RED BLOOD COUNT 4.69 MIL/MM3 (4.50-5.90); RED CELL DISTRIBUTION WIDTH 12.7 % (11.6-17.2)
[2017-09-23 03:57] LABS: INTERNATIONAL NORMALIZED RATIO 1.1 RATIO; PROTHROMBIN TIME - PATIENT 10.7 SEC (9.8-11.6)
[2017-09-23] MEDS: CHLORHEXIDINE GLUCONATE 2 % 1 PACK (2 CLOTHS) TOP SCH (04:00)
[2017-09-23 04:06] LABS: ALBUMIN 3.9 GM/DL (3.4-5.0); ALT (GPT) 31 U/L (12-78); AST (GOT) 18 U/L (15-37); BICARBONATE 26.4 MEQ/L (21.0-32.0); BLOOD UREA NITROGEN 7 MG/DL (7-18); CALCIUM 8.6 MG/DL (8.5-10.1); CHLORIDE 104 MEQ/L (98-107); CREATININE 0.78 MG/DL (0.60-1.30); GLOMERULAR FILTRATION RATE 105 ML/MIN (>89); GLUCOSE,RANDOM 92 MG/DL (74-106); PHOSPHORUS 2.7 MG/DL (2.5-4.9); SODIUM (NA) 138 MEQ/L (136-145)
[2017-09-23 04:08] LABS: ALKALINE PHOSPHATASE 69 U/L (45-117); TOTAL BILIRUBIN ADULT 0.8 MG/DL (0.2-1.0); TOTAL PROTEIN 7.3 GM/DL (6.4-8.2)
--- NOTE | 2017-09-23 08:08 | HHI.PR ---
Review/Management Diagnosis/Plan: (1) Acute right thalamic hemorrhage Status: Acute Plan: hypertensive ICH no ivh extension. usually maximal in first 6-24 hrs cta brain/carotid- nml recs neuro stable bp improved add oral bp meds and titrate ok for floor from neurology probable d/c 1-2 days (2) Hypertensive emergency ICD Codes: I16.1 - Hypertensive emergency Status: Acute Plan: bp control dash diet compliance d/w pt needs f/u with pcp Subjective Subjective Comments No acute events reported No headache No chest pain No dyspnea Active Medications Current Medications Medications (Trade) Dose Ordered Sig/[place] Route Start Time Stop Time Status Last Admin Potassium Chloride 100 ml @ 50 mls/hr Q2H PRN IV 09/22/17 12:00 Potassium Chloride 100 ml @ 50 mls/hr Q2H PRN IV 09/22/17 12:00 (K-Lyte Cl Eff) 50 meq UNSCH PRN PO 09/22/17 12:00 Potassium Chloride 100 ml @ 25 mls/hr UNSCH PRN IV 09/22/17 12:00 Potassium Chloride 100 ml @ 50 mls/hr Q2H PRN IV 09/22/17 12:00 Magnesium Sulfate 4 gm/Sodium Chloride 100 ml @ 50 mls/hr UNSCH PRN IV 09/22/17 12:00 (Mag-Ox) 800 mg UNSCH PRN PO 09/22/17 12:00 Magnesium Sulfate 2 gm/Sodium Chloride 100 ml @ 50 mls/hr UNSCH PRN IV 09/22/17 12:00 (K-Phos) 2,000 mg Q4H PRN PO 09/22/17 12:00 Sodium Phosphate 30 mmol/Sodium Chloride 250 ml @ 42 mls/hr UNSCH PRN IV 09/22/17 12:00 (K-Phos) 2,000 mg UNSCH PRN PO/TUBE 09/22/17 12:00 Potassium Phosphate 30 mmol/ Sodium Chloride 260 ml @ 42 mls/hr UNSCH PRN IV 09/22/17 12:00 Potassium Chloride/Sodium Chloride 1,000 ml @ 100 mls/hr Q10H IV 09/22/17 11:59 09/22/17 21:23 (Tylenol) 650 mg Q6H PRN PO 09/22/17 12:00 09/22/17 22:46 (Pepcid) 20 mg Q12HR PO 09/22/17 12:00 09/22/17 21:22 (Duoneb Neb) 1 ampule Q2HR NEB PRN INH 09/22/17 12:00 Miscellaneous Information 1 Q361D XX 09/22/17 12:00 (Chlorhexidine 2% Cloth) 3 pack Taper DAILY@04 TOP 09/23/17 04:00 09/19/18 03:59 (Chlorhexidine 2% Cloth) 3 pack UNSCH PRN TOP 09/22/17 12:00 (Hiral-Colace) 1 tab BID PO 09/22/17 21:00 09/22/17 21:23 (Milk Of Magnesther Liq) 30 ml Q12H PRN PO 09/22/17 12:00 Thiamine HCl 100 mg/Sodium Chloride 101 ml @ 101 mls/hr DAILY IV 09/22/17 13:15 09/22/17 14:10 (Prinivil) 10 mg Q12HR PO 09/22/17 13:15 09/22/17 21:23 (Apresoline Inj) 20 mg Q4H PRN IV PUSH 09/23/17 08:15 UNV (Microzide) 12.5 mg DAILY PO 09/23/17 09:00 UNV Allergies Allergies Coded Allergies No Known Allergies (Verified Adverse Reaction, Unknown, 09/22/17) Review of Systems All other ROS: ROS reviewed as documented in chart Exam I&O / VS Vital Signs Date Time Temp Pulse Resp B/P (MAP) Pulse Ox O2 Delivery O2 Flow Rate FiO2 09/23/17 08:00 98.2 80 26 148/99 (115) 98 09/23/17 08:00 80 09/23/17 07:00 98 Room Air 09/23/17 06:00 75 09/23/17 04:00 82 09/23/17 04:00 98.1 82 16 141/88 (105) 98 09/23/17 02:00 78 09/23/17 00:32 85 119/74 09/23/17 00:00 98.6 88 23 126/76 (93) 96 09/23/17 00:00 88 09/22/17 23:26 106 120/65 09/22/17 22:51 102 151/77 09/22/17 22:50 97 21 09/22/17 22:00 109 09/22/17 20:45 98.6 122 21 147/57 (87) 100 09/22/17 20:41 09/22/17 20:00 112 09/22/17 19:15 101 18 142/80 (100) 96 Room Air 09/22/17 18:35 97.8 102 17 142/81 (101) 99 Room Air 09/22/17 18:21 97.8 98 17 140/83 (102) 98 Room Air 09/22/17 17:27 97.9 98 16 131/79 (96) 99 09/22/17 16:36 97.9 104 17 135/75 (95) 99 Room Air 09/22/17 15:20 98 138/77 09/22/17 14:40 104 129/76 09/22/17 14:05 97.8 101 16 133/84 (100) 99 Room Air 09/22/17 13:39 98 135/86 09/22/17 13:25 97.8 99 16 132/82 (99) 99 Room Air 09/22/17 13:03 97.8 100 17 139/79 (99) 99 Room Air 09/22/17 12:33 103 136/80 09/22/17 12:00 98 18 141/85 (103) 98 Room Air 09/22/17 11:48 97.8 93 17 137/80 (99) 98 Room Air 09/22/17 11:44 98 17 131/98 (109) 98 Room Air 09/22/17 11:35 97.8 116 17 162/94 (116) 98 Room Air 09/22/17 11:34 108 166/94 09/22/17 11:28 108 172/104 09/22/17 11:23 108 180/115 09/22/17 11:15 105 210/118 09/22/17 11:11 105 236/120 09/22/17 10:53 110 17 98 Room Air 09/22/17 10:52 18 98 Room Air 09/22/17 10:52 97.8 104 18 215/129 (157) 97 09/22/17 10:52 98 Room Air General: Alert and Oriented, No acute distress Eye: EOMI Respiratory: Non-labored respirations Cardiology: Normal rate Musculoskeletal: ROM Neurologic: Alert, Oriented, CN II-XII intact, Normal DTR's Psychiatric: Cooperative, Appropriate mood & affect, Normal judgement Exam Comments ox 3, looks well, no aphasia, eomi, face sym, vff, left ue reduced pin and mild dystaxia>left leg Objective Micro and Labs Laboratory Tests Test 09/22/17 09:00 09/22/17 10:50 09/23/17 03:14 Urine Color LIGHT-YELLOW Urine Turbidity CLEAR Urine pH 7.0 Urine Specific [place] 1.012 Urine Protein TRACE Urine Glucose (UA) NEG Urine Ketones NEG Urine Occult Blood NEG Urine Nitrite NEG Urine Bilirubin NEG Urine Urobilinogen LESS THAN 2.0 Urine Leukocyte Esterase NEG Urine Mucus FEW Urine Opiates Screen NEG Urine Barbiturates Screen NEG Urine Amphetamines Screen NEG Urine Benzodiazepines Screen NEG Urine Cocaine Screen NEG Urine Cannabinoids Screen NEG White Blood Count 10.4 12.0 Red Blood Count 5.00 4.69 Hemoglobin 16.3 15.0 Bedside Hemoglobin 16.0 Hematocrit 45.7 43.1 Bedside Hematocrit 47.0 Mean Corpuscular Volume 91.4 91.9 Mean Corpuscular Hemoglobin 32.6 31.9 Mean Corpuscular Hemoglobin Concent 35.6 34.7 Red Cell Distribution Width 12.5 12.7 Platelet Count 296 267 Mean Platelet Volume 9.1 8.9 Neutrophils (%) (Auto) 62.5 72.3 Lymphocytes (%) (Auto) 25.3 17.0 Monocytes (%) (Auto) 8.6 7.5 Eosinophils (%) (Auto) 2.5 2.0 Basophils (%) (Auto) 1.1 1.2 Neutrophils # (Auto) 6.5 8.7 Lymphocytes # (Auto) 2.6 2.0 Monocytes # (Auto) 0.9 0.9 Eosinophils # (Auto) 0.3 0.2 Basophils # (Auto) 0.1 0.1 CBC Comment DIFF FINAL DIFF FINAL Differential Comment Prothrombin Time 10.4 10.7 Prothromb Time International Ratio 1.0 1.1 Activated Partial Thromboplast Time 22.9 25.4 Fibrinogen 269 Bedside Sodium 139 Bedside Potassium 3.2 Bedside Chloride 98 Bedside Blood Urea Nitrogen 10 Bedside Creatinine 1.0 Bedside Glucose 107 Phosphorus Level 2.2 2.7 Magnesium Level 1.9 2.0 Total Creatine Kinase 146 Troponin I LESS THAN 0.02 Blood Urea Nitrogen 7 Creatinine 0.78 Random Glucose 92 Total Protein 7.3 Albumin 3.9 Calcium Level 8.6 Alkaline Phosphatase 69 Aspartate Amino Transf (AST/SGOT) 18 Alanine Aminotransferase (ALT/SGPT) 31 Total Bilirubin 0.8 Sodium Level 138 Potassium Level 3.4 Chloride Level 104 Carbon Dioxide Level 26.4 Anion Gap 8 Estimat Glomerular Filtration Rate 105 Bertrand Valero MD Sep 23, 2017 08:07
--- NOTE | 2017-09-23 08:14 | HHI.CCPN ---
Subjective Remarks/Hospital Course Patient is a 52-year-old male who presented to the [place] emergency department via EMS as a stroke alert. While at work patient felt dizzy and had difficulty using left upper extremity. This progressed to numbness and tingling of the left side of the body with associated difficulty walking. Patient states that he had been taking lisinopril prior for hypertension but discontinued it by himself several years ago due to lack of insurance. He occasionally checks his blood pressure at home last checked 1 month ago it was 210/110 approximately, but he did not seek any treatment as he felt fine. In the ER initial blood pressure was 236/120. Neurology Dr. Valero was also informed about stroke alert. A stat CT of the head showed acute 17 mm right thalamic hemorrhage. Cardene was initiated and titrated up to keep systolic blood pressure less than 140/90. Neurosurgery Dr. Nguyen was also consulted. I evaluated the patient in the ED. Currently patient remains on Cardene infusion, his blood pressure control is better. He feels left upper extremity strength may be improved slightly. I explained to him that more than likely management will be medical unless there is expansion of the bleed or intraventricular extension. A repeat CT of the head will be performed tomorrow. His platelet count and coags are normal at this time 09/23: Lying in bed no discernible weakness on the left side now. Follow-up CT of the head pending at this time. Blood pressure adequately controlled, off Cardene. Scheduled lisinopril started, add hydrochlorothiazide Objective Vital Signs Date Time Temp Pulse Resp B/P (MAP) Pulse Ox O2 Delivery O2 Flow Rate FiO2 09/23/17 07:00 98 Room Air 09/23/17 06:00 75 09/23/17 04:00 98.1 16 141/88 (105) 09/22/17 22:50 21 Intake and Output 09/23/17 09/23/17 09/23/17 07:59 15:59 23:59 Intake Total 100 ml Output Total 700 ml Balance -600 ml Result Diagram: 09/23/1731309/23/[address] of the head showed acute right thalamic hemorrhage 70 mm Objective Remarks GENERAL: Awake, alert, pleasant 52-year-old male who appears his stated age and is in no acute respiratory distress. SKIN: warm/dry. HEAD: Atraumatic. Normocephalic. EYES: Pupils equal and round. 4 mm bilateral and reactive. ENT: No nasal bleeding or discharge. Mucous membranes pink and moist. NECK: Trachea midline. No JVD. CARDIOVASCULAR: Regular rhythm, no murmurs RESPIRATORY: No accessory muscle use. Clear to auscultation. GASTROINTESTINAL: Abdomen soft, non-tender, nondistended. No rebound tenderness. MUSCULOSKELETAL: No obvious deformities. NEUROLOGICAL: Awake and alert. oriented 4. EOMs are intact. Left-sided weakness now seems to have resolved. Near 5 out of 5 power all 4 extremities A/P Assessment and Plan NEURO: Acute right thalamic hemorrhage Left hemiparesis, improved Daily alcohol use -Frequent neuro checks per [facility] protocol -Repeat CT of the head today. Neurosurgery Dr. Nguyen -Supplement thiamine watch for alcohol withdrawal -No indication for seizure prophylaxis -Avoid hyponatremia hyperthermia RESP: -Nasal cannula oxygen, if needed to keep saturation above 90% -DuoNeb every 6 hours as needed if needed -Counselled to quit smoking CV: Hypertensive emergency History of hypertension -Off Cardene infusion -Keep systolic blood pressure less than 140 diastolic less than 90 -Lisinopril 10 mg p.o. twice daily, add HCTZ 25 mg daily -Need 2D echo, can be done outpatient GI: -Speech eval and diet per recommendation -P.o. famotidine : -Monitor renal function closely. No indication for Contreras catheter ID: -Monitor closely for infection HEME: -Monitor CBC, CMP, coags ENDO: Hypokalemia Hypophosphatemia -Electrolyte replacement protocol PROPH: -Bilateral lower extremity SCDs/FROILAN. PO famotidine. Chemical DVT prophylaxis is contraindicated LINES: -Utilize peripheral IVs, central line if needed Level 2 Consult hospitalist to assume care in a.m. Transfer to 5N if CT head stable Debra Martinez MD Sep 23, 2017 08:14
[2017-09-23] MEDS ORDERED: hydrALAZINE HCL 20 MG/ML VIAL IV PUSH PRN (08:15)
[2017-09-23] MEDS: DOCUSATE SODIUM 50 MG/SENNA 8.6 MG TAB PO SCH ×2 (08:36→22:18)
[2017-09-23] MEDS: THIAMINE HCL 100 MG TAB PO SCH (08:36)
[2017-09-23] MEDS: LISINOPRIL 10 MG TAB PO SCH ×2 (08:36→22:18)
[2017-09-23] MEDS: FAMOTIDINE 20 MG TAB PO SCH ×2 (08:36→22:19)
[2017-09-23] MEDS: NS + KCL 20 MEQ INJ 1,000 ML IV SCH ×2 (08:36→18:45)
[2017-09-23] MEDS: HYDROCHLOROTHIAZIDE 12.5 MG CAP PO SCH (08:36)
--- NOTE | 2017-09-23 09:14 | RADRPT ---
EXAM DATE/TIME: 09/23/2017 09:00 [facility] COMPARISON: CT BRAIN W/O CONTRAST, September 22, 2017, 11:00. INDICATIONS : Follow up bleed. RADIATION DOSE: 56.35 CTDIvol (mGy) MEDICAL HISTORY : Cardiovascular disease. Hypertension. Bleed SURGICAL HISTORY : None. ENCOUNTER: Subsequent ACUITY: 2 days PAIN SCALE: 0/10 LOCATION: cranial TECHNIQUE: Multiple contiguous axial images were obtained of the head. Using automated exposure control and adj ustment of the mA and/or kV according to patient size, radiation dose was kept as low as reasonably a chievable to obtain optimal diagnostic quality images. DICOM format image data is available electro nically for review and comparison. FINDINGS: CEREBRUM: There is an evolving thalamic hemorrhage on the right stable in size and configuration. No new hemor rhage is evident. POSTERIOR FOSSA: The cerebellum and brainstem are intact. The 4th ventricle is midline. The cerebellopontine angle i s unremarkable. EXTRACRANIAL: The visualized portion of the orbits is intact. SKULL: The calvaria is intact. No evidence of skull fracture. CONCLUSION: Evolving parenchymal hemorrhage right thalamus 1.6 cm stable Benny Greene MD FACR on September 23, 2017 at 9:09 Board Certified Radiologist. This report was verified electronically.
--- NOTE | 2017-09-23 09:50 | HHI.NSPN ---
(Rl Lopez) History Chief Complaint: Mild intermittent headache. (Rl Lopez) Interval History 52-year-old gentleman with an acute onset of dizziness and left-sided weakness and numbness starting this morning. He presented to the emergency room as a stroke alert was found be very hypertensive and workup with a CT of the head reveals a small right thalamic hemorrhage without any mass effect or interventricular extension. He has been placed on a Cardene drip to regulate his hypertension. He has a mild headache denies any nausea or vomiting or denies any right sided symptoms. 09/23/17: Pt awake and alert. Complains of mild intermittent headache. Left sided numbness and paresthesias improving. (Rl Lopez) Review of Systems General: Negative for: fever, chills, insomnia Respiratory: Negative for: shortness of breath, cough, sputum Cardiovascular: Negative for: chest pain Gastrointestinal: Negative for: nausea, vomitting, diarrhea, constipation ( Rl Lopez) Exam Results Vital Signs Date Time Temp Pulse Resp B/P (MAP) Pulse Ox O2 Delivery O2 Flow Rate FiO2 09/23/17 08:00 98.2 80 26 148/99 (115) 98 09/23/17 07:00 Room Air 09/22/17 22:50 21 Intake and Output 09/23/17 09/23/17 09/24/17 08:00 16:00 00:00 Intake Total 100 ml Output Total 700 ml Balance -600 ml (Rl Lopez) Physical Examination General: Pt awake and alert resting in ICU. Eyes: Pupils equal. Sclera anicteric. Resp: CTA bilaterally Heart: NSR no murmurs Abd: Soft positive bs Skin: No cyanosis or erythema Muscle: Moves all 4 extremities with good strength. Neuro: Pt awake and alert. Follows commands well. Speech clear and appropriate. Pupils 3mm bilaterally reactive bilaterally. (Rl Lopez) Lab, Micro, Other Results Last Impressions Head CT 09/23/17 0000 Signed Impressions: Service Date/Time: Saturday, September 23, 2017 09:00 - CONCLUSION: Evolving parenchymal hemorrhage right thalamus 1.6 cm stable Benny Greene MD FACR Neck CTA 09/22/17 0000 Signed Impressions: Service Date/Time: Friday, September 22, 2017 17:57 - CONCLUSION: Unremarkable exam with no evidence of stenosis or occlusion. Bob Rudolph MD Head CTA 09/22/17 0000 Signed Impressions: Service Date/Time: Friday, September 22, 2017 17:57 - CONCLUSION: No vascular abnormality. Bob Rudolph MD Laboratory Tests Test 09/22/17 10:50 09/23/17 03:14 White Blood Count 10.4 TH/MM3 12.0 TH/MM3 Red Blood Count 5.00 MIL/MM3 4.69 MIL/MM3 Hemoglobin 16.3 GM/DL 15.0 GM/DL Bedside Hemoglobin 16.0 G/DL Hematocrit 45.7 % 43.1 % Bedside Hematocrit 47.0 % Mean Corpuscular Volume 91.4 FL 91.9 FL Mean Corpuscular Hemoglobin 32.6 PG 31.9 PG Mean Corpuscular Hemoglobin Concent 35.6 % 34.7 % Red Cell Distribution Width 12.5 % 12.7 % Platelet Count 296 TH/MM3 267 TH/MM3 Mean Platelet Volume 9.1 FL 8.9 FL Neutrophils (%) (Auto) 62.5 % 72.3 % Lymphocytes (%) (Auto) 25.3 % 17.0 % Monocytes (%) (Auto) 8.6 % 7.5 % Eosinophils (%) (Auto) 2.5 % 2.0 % Basophils (%) (Auto) 1.1 % 1.2 % Neutrophils # (Auto) 6.5 TH/MM3 8.7 TH/MM3 Lymphocytes # (Auto) 2.6 TH/MM3 2.0 TH/MM3 Monocytes # (Auto) 0.9 TH/MM3 0.9 TH/MM3 Eosinophils # (Auto) 0.3 TH/MM3 0.2 TH/MM3 Basophils # (Auto) 0.1 TH/MM3 0.1 TH/MM3 CBC Comment DIFF FINAL DIFF FINAL Differential Comment Prothrombin Time 10.4 SEC 10.7 SEC Prothromb Time International Ratio 1.0 RATIO 1.1 RATIO Activated Partial Thromboplast Time 22.9 SEC 25.4 SEC Fibrinogen 269 mg/dL Bedside Sodium 139 MMOL/L Bedside Potassium 3.2 MMOL/L Bedside Chloride 98 MMOL/L Bedside Blood Urea Nitrogen 10 MG/DL Bedside Creatinine 1.0 MG/DL Bedside Glucose 107 MG/DL Phosphorus Level 2.2 MG/DL 2.7 MG/DL Magnesium Level 1.9 MG/DL 2.0 MG/DL Total Creatine Kinase 146 U/L Troponin I LESS THAN 0.02 NG/ML Blood Urea Nitrogen 7 MG/DL Creatinine 0.78 MG/DL Random Glucose 92 MG/DL Total Protein 7.3 GM/DL Albumin 3.9 GM/DL Calcium Level 8.6 MG/DL Alkaline Phosphatase 69 U/L Aspartate Amino Transf (AST/SGOT) 18 U/L Alanine Aminotransferase (ALT/SGPT) 31 U/L Total Bilirubin 0.8 MG/DL Sodium Level 138 MEQ/L Potassium Level 3.4 MEQ/L Chloride Level 104 MEQ/L Carbon Dioxide Level 26.4 MEQ/L Anion Gap 8 MEQ/L Estimat Glomerular Filtration Rate 105 ML/MIN (Rl Lopez) Medical Decision Making Impression and Plan A: 52 y/o M with a small right thalamic hypertensive bleed. HTN. Pt currently requiring prn meds. P: Continue with blood pressure control Continue with Neuro checks. continue to monitor in ICU until blood pressure more stable on meds that can be given on med/surg floor. (Rl Lopez) Attending Statement The exam, history, and the medical decision-making described in the above note were completed with the assistance of the mid-level provider. I reviewed and agree with the findings presented. I attest that I had a [id number] encounter with the patient on the same day, and personally performed and documented my assessment and findings in the medical record. Stable follow-up exam and CT scan of the head. Medical management with hypertension regulation and rehabilitation. (Clark Nguyen MD) Rl Lopez Sep 23, 2017 09:50 Clark Nguyen MD Sep 23, 2017 10:54
[2017-09-23] MEDS: cloNIDine HCL 0.2 MG TAB PO PRN ×2 (13:04→18:45)
[2017-09-23] MEDS: ALPRAZolam 0.5 MG TAB PO PRN ×2 (13:04→18:45)
--- NOTE | 2017-09-23 21:42 | EKG ---
Date Performed: 09/22/2017 Time Performed: 11:12:27 PTAGE: 52 years EKG: SINUS TACHYCARDIA POSSIBLE LEFT ATRIAL ENLARGEMENT NONSPECIFIC T-WAVE ABNORMALITY ABNORMAL RHYTHM ECG NO PREVIOUS TRACING DOCTOR: Gal Woods Interpretating Date/Time 09/23/2017 21:39:31
[2017-09-24] VITALS (9 sets, daily range): BP systolic 120–172; BP diastolic 70–99; PULSE 80–103; RESP 16–20; TEMP 96.8–98.3; O2SAT 94–98
[2017-09-24] MEDS: CHLORHEXIDINE GLUCONATE 2 % 1 PACK (2 CLOTHS) TOP SCH (04:00)
[2017-09-24] MEDS: NS + KCL 20 MEQ INJ 1,000 ML IV SCH (04:26)
--- NOTE | 2017-09-24 09:13 | HHI.NSPN ---
(Rl Lopez) History Chief Complaint: Mild intermittent headache. (Rl Lopez) Interval History 52-year-old gentleman with an acute onset of dizziness and left-sided weakness and numbness starting this morning. He presented to the emergency room as a stroke alert was found be very hypertensive and workup with a CT of the head reveals a small right thalamic hemorrhage without any mass effect or interventricular extension. He has been placed on a Cardene drip to regulate his hypertension. He has a mild headache denies any nausea or vomiting or denies any right sided symptoms. 09/23/17: Pt awake and alert. Complains of mild intermittent headache. Left sided numbness and paresthesias improving. 09/24/17: Pt awake and alert. States headaches improved today. Left sided numbness and paresthesias improving states some on left side of face and upper chest area. Strength improving near normal. No chest pain or sob. (Rl Lopez) Review of Systems General: Negative for: fever, chills, insomnia Respiratory: Negative for: shortness of breath, cough, sputum Cardiovascular: Negative for: chest pain Gastrointestinal: Negative for: nausea, vomitting, diarrhea, constipation ( Rl Lopez) Exam Results Vital Signs Date Time Temp Pulse Resp B/P (MAP) Pulse Ox O2 Delivery O2 Flow Rate FiO2 09/24/17 08:10 97.7 84 18 120/71 (87) 97 09/23/17 20:00 Room Air 09/22/17 22:50 21 Intake and Output 09/24/17 09/24/17 09/24/17 07:59 15:59 23:59 Intake Total 0 ml Balance 0 ml (Rl Lopez) Physical Examination General: Pt awake and alert resting in bed in NAD with stable vitals. Eyes: Pupils equal. Sclera anicteric. Resp: CTA bilaterally Heart: NSR no murmurs Abd: Soft positive bs Skin: No cyanosis or erythema Muscle: Moves all 4 extremities with good strength. Neuro: Pt awake and alert. Follows commands well. Speech clear and appropriate. Pupils 3mm bilaterally reactive bilaterally. (Rl Lopez) Lab, Micro, Other Results Last Impressions Head CT 09/23/17 0000 Signed Impressions: Service Date/Time: Saturday, September 23, 2017 09:00 - CONCLUSION: Evolving parenchymal hemorrhage right thalamus 1.6 cm stable Benny Greene MD FACR Neck CTA 09/22/17 0000 Signed Impressions: Service Date/Time: Friday, September 22, 2017 17:57 - CONCLUSION: Unremarkable exam with no evidence of stenosis or occlusion. Bob Rudolph MD Head CTA 09/22/17 0000 Signed Impressions: Service Date/Time: Friday, September 22, 2017 17:57 - CONCLUSION: No vascular abnormality. Bob Rudolph MD Laboratory Tests Test 09/23/17 11:21 09/23/17 14:23 Nasal Screen MRSA (PCR) MRSA NOT DETECTED Potassium Level 3.6 MEQ/L Phosphorus Level 2.0 MG/DL (Rl Lopez) Medical Decision Making Impression and Plan A: 52 y/o M with a small right thalamic hypertensive bleed. HTN. Controlled. P: Continue with blood pressure control Continue with Neuro checks. Continue with PT Advance diet. (Rl Lopez) Attending Statement The exam, history, and the medical decision-making described in the above note were completed with the assistance of the mid-level provider. I reviewed and agree with the findings presented. I attest that I had a [id number] encounter with the patient on the same day, and personally performed and documented my assessment and findings in the medical record. Hypertension well regulated and improving exam. Continue with medical management and rehabilitation. (Clark Nguyen MD) Rl Lopez Sep 24, 2017 09:13 Clark Nguyen MD Sep 24, 2017 18:57
[2017-09-24] MEDS: FAMOTIDINE 20 MG TAB PO SCH ×2 (10:32→22:24)
[2017-09-24] MEDS: THIAMINE HCL 100 MG TAB PO SCH (10:33)
[2017-09-24] MEDS: LISINOPRIL 10 MG TAB PO SCH ×2 (10:33→22:24)
[2017-09-24] MEDS: DOCUSATE SODIUM 50 MG/SENNA 8.6 MG TAB PO SCH ×2 (10:33→22:24)
[2017-09-24] MEDS: HYDROCHLOROTHIAZIDE 12.5 MG CAP PO SCH (10:33)
--- NOTE | 2017-09-24 20:17 | HHI.FF ---
Face to Face Verification Diagnosis: (1) Weakness acquired in ICU (2) Acute right thalamic hemorrhage Physical Therapy Order: Evaluate and Treat Occupational Therapy Order: Evaluate and Treat Home Health Nursing Order: Nursing assessment with vital signs I have seen patient Kermit RodriguezJr on 09/24/17. My clinical findings support the need for the requested home health care services because: Limited ability to care for self I certify that my clinical findings support that this patient is homebound because: Unsteady gait/balance Claudio Jolley MD Sep 24, 2017 20:17
--- NOTE | 2017-09-24 20:17 | HHI.PR ---
Subjective Remarks Patient seen this afternoon around 1 PM. Says he is feeling all right. Denies any headache. Denies any chest pain or shortness of breath. Objective Vital Signs Date Time Temp Pulse Resp B/P (MAP) Pulse Ox O2 Delivery O2 Flow Rate FiO2 09/24/17 16:06 98.1 88 18 120/70 (87) 98 09/24/17 12:00 98.3 103 18 131/81 (98) 96 09/24/17 08:10 97.7 84 18 120/71 (87) 97 09/24/17 08:00 Room Air 09/24/17 04:00 98.1 90 20 127/85 (99) 94 09/24/17 00:00 97.8 80 18 135/85 (102) 94 I/O 09/23/17 09/23/17 09/23/17 09/24/17 09/24/17 09/24/17 07:00 15:00 23:00 07:00 15:00 23:00 Intake Total 100 ml 1000 ml 0 ml 720 ml Output Total 700 ml Balance -600 ml 1000 ml 0 ml 720 ml Intake Oral 0 ml 720 ml IV Total 100 ml 1000 ml Output Urine Total 700 ml Stool Total 0 ml # Voids 2 3 # Bowel Movements 0 Result Diagram: 09/23/17 0314 09/23/17 1423 Objective Remarks GENERAL: patient sitting in bed. Appears comfortable. Alert and oriented 3. SKIN: Warm and dry. HEAD: Normocephalic. EYES: No scleral icterus. No injection or drainage. NECK: Supple, trachea midline. No JVD. CARDIOVASCULAR: Regular rate and rhythm without murmurs, gallops, or rubs. RESPIRATORY: Breath sounds equal bilaterally. No accessory muscle use. GASTROINTESTINAL: Abdomen soft, non-tender, nondistended. MUSCULOSKELETAL: No cyanosis, or edema. BACK: Nontender without obvious deformity. No CVA tenderness. A/P Assessment and Plan //Acute right thalamic hemorrhage //Left hemiparesis, improved //Daily alcohol use -Frequent neuro checks per ISC protocol -Repeat CT of the head today. Neurosurgery Dr. Nguyen -Supplement thiamine watch for alcohol withdrawal -No indication for seizure prophylaxis -Avoid hyponatremia hyperthermia = Recheck labs tomorrow. Appreciate neurosurgery assistance. Likely getting go home with home health when cleared by neurosurgery. Continue to monitor blood pressure. //Hypertensive emergency //History of hypertension -Off Cardene infusion -Keep systolic blood pressure less than 140 diastolic less than 90 -Lisinopril 10 mg p.o. twice daily, HCTZ 25 mg daily -Need 2D echo, can be done outpatient //Hypokalemia //Hypophosphatemia -Electrolyte replacement protocol = 09/24. Improved. Recheck tomorrow. //Tobacco abuse. Counselled to quit smoking //Alcohol abuse. Patient drinks a pint of rum every day. Suspect that uncontrolled hypertension was secondary to alcohol withdrawal. Cessation counseling provided. PROPH: -Bilateral lower extremity SCDs/FROILAN. PO famotidine. Chemical DVT prophylaxis is contraindicated Discharge Planning discharge home with home health when cleared by neurosurgery Claudio Jolley MD Sep 24, 2017 20:17
[2017-09-25 04:00] VITALS: BP 161/98; PULSE 85; RESP 16; TEMP 97.8; O2SAT 97
[2017-09-25] MEDS: CHLORHEXIDINE GLUCONATE 2 % 1 PACK (2 CLOTHS) TOP SCH (04:00)
[2017-09-25] MEDS: cloNIDine HCL 0.2 MG TAB PO PRN (05:21)
[2017-09-25] MEDS: ALPRAZolam 0.5 MG TAB PO PRN (05:21)
[2017-09-25 05:34] LABS: AUTOMATED NEUTROPHIL # 6.2 TH/MM3 (1.8-7.7); BASOPHIL # 0.1 TH/MM3 (0-0.2); BASOPHIL % 0.8 % (0.0-2.0); EOSINOPHIL # 0.3 TH/MM3 (0-0.4); HEMATOCRIT 45.3 % (39.0-51.0); HEMOGLOBIN 15.8 GM/DL (13.0-17.0); LYMPH % 24.5 % (9.0-44.0); LYMPHOCYTE # 2.5 TH/MM3 (1.0-4.8); MEAN CELL VOLUME 91.9 FL (80.0-100.0); MEAN CORPUSCULAR HEMOGLOBIN 32.2 PG (27.0-34.0); MEAN PLATELET VOLUME 8.7 FL (7.0-11.0); NEUT % 61.7 % (16.0-70.0); PLATELET COUNT 288 TH/MM3 (150-450); RED BLOOD COUNT 4.93 MIL/MM3 (4.50-5.90); RED CELL DISTRIBUTION WIDTH 12.3 % (11.6-17.2); WHITE BLOOD COUNT 10.1 TH/MM3 (4.0-11.0)
[2017-09-25 05:54] LABS: ALBUMIN 3.6 GM/DL (3.4-5.0); BICARBONATE 28.2 MEQ/L (21.0-32.0); CALCIUM 9.4 MG/DL (8.5-10.1); CREATININE 0.93 MG/DL (0.60-1.30); PHOSPHORUS 4.1 MG/DL (2.5-4.9)
[2017-09-25 08:00] VITALS: BP 118/81; PULSE 89; RESP 18; TEMP 97; O2SAT 96
[2017-09-25 09:00] VITALS: O2SAT 97
--- NOTE | 2017-09-25 09:03 | HHI.NSPN ---
(Rl Lopez) History Chief Complaint: Mild intermittent headache. (Rl Lopez) Interval History 52-year-old gentleman with an acute onset of dizziness and left-sided weakness and numbness starting this morning. He presented to the emergency room as a stroke alert was found be very hypertensive and workup with a CT of the head reveals a small right thalamic hemorrhage without any mass effect or interventricular extension. He has been placed on a Cardene drip to regulate his hypertension. He has a mild headache denies any nausea or vomiting or denies any right sided symptoms. 09/23/17: Pt awake and alert. Complains of mild intermittent headache. Left sided numbness and paresthesias improving. 09/24/17: Pt awake and alert. States headaches improved today. Left sided numbness and paresthesias improving states some on left side of face and upper chest area. Strength improving near normal. No chest pain or sob. 09/25/17: Pt awake and alert. Denies headache. No n/v. States numbness is improving. States he feels comfortable going home as is not doing anything here he cant do at home. (Rl Lopez) Review of Systems General: Negative for: fever, chills, insomnia Respiratory: Negative for: shortness of breath, cough, sputum Cardiovascular: Negative for: chest pain Gastrointestinal: Negative for: nausea, vomitting, diarrhea, constipation ( Rl Lopez) Exam Results Vital Signs Date Time Temp Pulse Resp B/P (MAP) Pulse Ox O2 Delivery O2 Flow Rate FiO2 09/25/17 08:00 97.0 89 18 118/81 (93) 96 09/24/17 22:00 Room Air 09/22/17 22:50 21 Intake and Output 09/25/17 09/25/17 09/26/17 08:00 16:00 00:00 Intake Total 480 ml Balance 480 ml (Rl Lopez) Physical Examination General: Pt awake and alert resting in bed in NAD with stable vitals. Eyes: Pupils equal. Sclera anicteric. Resp: CTA bilaterally Heart: NSR no murmurs Abd: Soft positive bs Skin: No cyanosis or erythema Muscle: Moves all 4 extremities with good strength. Neuro: Pt awake and alert. Follows commands well. Speech clear and appropriate. Pupils 3mm bilaterally reactive bilaterally. States numbness in face basically resolved. (Rl Lopez) Lab, Micro, Other Results Last Impressions Head CT 09/23/17 0000 Signed Impressions: Service Date/Time: Saturday, September 23, 2017 09:00 - CONCLUSION: Evolving parenchymal hemorrhage right thalamus 1.6 cm stable Benny Greene MD FACR Neck CTA 09/22/17 0000 Signed Impressions: Service Date/Time: Friday, September 22, 2017 17:57 - CONCLUSION: Unremarkable exam with no evidence of stenosis or occlusion. Bob Rudolph MD Head CTA 09/22/17 0000 Signed Impressions: Service Date/Time: Friday, September 22, 2017 17:57 - CONCLUSION: No vascular abnormality. Bob Rudolph MD Laboratory Tests Test 09/25/17 04:41 White Blood Count 10.1 TH/MM3 Red Blood Count 4.93 MIL/MM3 Hemoglobin 15.8 GM/DL Hematocrit 45.3 % Mean Corpuscular Volume 91.9 FL Mean Corpuscular Hemoglobin 32.2 PG Mean Corpuscular Hemoglobin Concent 35.0 % Red Cell Distribution Width 12.3 % Platelet Count 288 TH/MM3 Mean Platelet Volume 8.7 FL Neutrophils (%) (Auto) 61.7 % Lymphocytes (%) (Auto) 24.5 % Monocytes (%) (Auto) 10.0 % Eosinophils (%) (Auto) 3.0 % Basophils (%) (Auto) 0.8 % Neutrophils # (Auto) 6.2 TH/MM3 Lymphocytes # (Auto) 2.5 TH/MM3 Monocytes # (Auto) 1.0 TH/MM3 Eosinophils # (Auto) 0.3 TH/MM3 Basophils # (Auto) 0.1 TH/MM3 CBC Comment DIFF FINAL Differential Comment Blood Urea Nitrogen 13 MG/DL Creatinine 0.93 MG/DL Random Glucose 87 MG/DL Albumin 3.6 GM/DL Calcium Level 9.4 MG/DL Phosphorus Level 4.1 MG/DL Magnesium Level 2.0 MG/DL Sodium Level 137 MEQ/L Potassium Level 3.3 MEQ/L Chloride Level 103 MEQ/L Carbon Dioxide Level 28.2 MEQ/L Anion Gap 6 MEQ/L Estimat Glomerular Filtration Rate 86 ML/MIN (Rl Lopez) Medical Decision Making Impression and Plan A: 52 y/o M with a small right thalamic hypertensive bleed. HTN. Controlled. P: Neurosurgically stable to discharge home with [facility] and home pt. Continue with blood pressure control Follow up with pcp. No neurosurgical intervention needed. (Rl Lopez) Attending Statement The exam, history, and the medical decision-making described in the above note were completed with the assistance of the mid-level provider. I reviewed and agree with the findings presented. I attest that I had a [id number] encounter with the patient on the same day, and personally performed and documented my assessment and findings in the medical record. (Clark Nguyen MD) Rl Lopez Sep 25, 2017 09:03 Clark Nguyen MD Sep 25, 2017 14:41
[2017-09-25] MEDS: HYDROCHLOROTHIAZIDE 12.5 MG CAP PO SCH (09:17)
[2017-09-25] MEDS: FAMOTIDINE 20 MG TAB PO SCH (09:18)
[2017-09-25] MEDS: THIAMINE HCL 100 MG TAB PO SCH (09:18)
[2017-09-25] MEDS: DOCUSATE SODIUM 50 MG/SENNA 8.6 MG TAB PO SCH (09:18)
[2017-09-25] MEDS: LISINOPRIL 10 MG TAB PO SCH (09:18)
[2017-09-25] MEDS ORDERED: CLON0.1T PO (09:23)
[2017-09-25] MEDS ORDERED: HYDR12.57 PO (09:23)
[2017-09-25] MEDS ORDERED: LISI10TA3 PO (09:23)
[2017-09-25] MEDS ORDERED: WALKER WHEELS/F1 MIS (09:25)
[2017-09-25] MEDS ORDERED: POTASSIUM CHLORIDE 20 MEQ CONTROLLED RELEASE TAB PO ONE (09:30)
--- NOTE | 2017-09-25 13:46 | HHI.PR ---
Subjective Remarks Patient seen this morning around 9 AM. Says he is feeling all right. Denies any chest pain or shortness of breath. Denies any headache. Reports weakness is improved. Objective Vital Signs Date Time Temp Pulse Resp B/P (MAP) Pulse Ox O2 Delivery O2 Flow Rate FiO2 09/25/17 08:00 Room Air 09/25/17 08:00 97.0 89 18 118/81 (93) 96 09/25/17 04:00 97.8 85 16 161/98 (119) 97 09/24/17 23:54 96.8 85 18 155/98 (117) 98 09/24/17 22:00 Room Air 09/24/17 22:00 84 09/24/17 20:15 96 09/24/17 20:00 97.2 96 16 172/99 (123) 97 09/24/17 16:06 98.1 88 18 120/70 (87) 98 I/O 09/24/17 09/24/17 09/24/17 09/25/17 09/25/17 09/25/17 06:59 14:59 22:59 06:59 14:59 22:59 Intake Total 0 ml 720 ml 480 ml Balance 0 ml 720 ml 480 ml Intake Oral 0 ml 720 ml 480 ml # Voids 2 3 2 # Bowel Movements 0 Result Diagram: 09/25/1744009/25/17440 Objective Remarks GENERAL: patient sitting in bed. Appears comfortable. Alert and oriented 3. No change on exam SKIN: Warm and dry. HEAD: Normocephalic. EYES: No scleral icterus. No injection or drainage. NECK: Supple, trachea midline. No JVD. CARDIOVASCULAR: Regular rate and rhythm without murmurs, gallops, or rubs. RESPIRATORY: Breath sounds equal bilaterally. No accessory muscle use. GASTROINTESTINAL: Abdomen soft, non-tender, nondistended. MUSCULOSKELETAL: No cyanosis, or edema. BACK: Nontender without obvious deformity. No CVA tenderness. A/P Assessment and Plan //Acute right thalamic hemorrhage //Left hemiparesis, improved //Daily alcohol use -Frequent neuro checks per [facility] protocol -Repeat CT of the head today. Neurosurgery Dr. Nguyen -Supplement thiamine watch for alcohol withdrawal -No indication for seizure prophylaxis -Avoid hyponatremia hyperthermia = Recheck labs tomorrow. Appreciate neurosurgery assistance. Likely getting go home with home health when cleared by neurosurgery. Continue to monitor blood pressure. = Will add clonidine 3 times daily for blood pressure control. Follow-up with primary care, neurosurgery as outpatient. //Hypertensive emergency //History of hypertension -Off Cardene infusion -Keep systolic blood pressure less than 140 diastolic less than 90 -Lisinopril 10 mg p.o. twice daily, HCTZ 25 mg daily -Need 2D echo, can be done outpatient = Follow-up with primary care and neurosurgery. We will need to obtain 2D echo as outpatient. //Hypokalemia //Hypophosphatemia -Electrolyte replacement protocol = 09/24. Improved. Recheck tomorrow. = Mild hypokalemia. Expect to improve with regular diet. Follow-up primary care as outpatient. //Tobacco abuse. Counselled to quit smoking //Alcohol abuse. Patient drinks a pint of rum every day. Suspect that uncontrolled hypertension was secondary to alcohol withdrawal. Cessation counseling provided. Patient says he will not drink anymore. PROPH: -Bilateral lower extremity SCDs/FROILAN. PO famotidine. Chemical DVT prophylaxis is contraindicated Discharge Planning discharge home with home health Claudio Jolley MD Sep 25, 2017 13:46
--- NOTE | 2017-09-25 13:49 | HHI.FF ---
Face to Face Verification Diagnosis: (1) Acute right thalamic hemorrhage Home Health Nursing Order: Nursing assessment with vital signs I have seen patient Kermit RodriguezJr on 09/25/17. My clinical findings support the need for the requested home health care services because: Limited ability to care for self I certify that my clinical findings support that this patient is homebound because: Unsteady gait/balance Claudio Jolley MD Sep 25, 2017 13:49
--- NOTE | 2017-09-25 13:59 | HHI.DS ---
Discharge Summary Admission Date Sep 22, 2017 at 11:58 Discharge Date: Sep 25, 2017 Admitting Diagnosis Right intraparenchymal hemorrhage (1) Acute right thalamic hemorrhage Diagnosis: Principal Status: Acute (2) Hypertensive emergency ICD Code: I16.1 - Hypertensive emergency Diagnosis: Principal Status: Acute (3) Hypokalemia ICD Code: E87.6 - Hypokalemia Diagnosis: Principal (4) Hypophosphatemia ICD Code: E83.39 - Other disorders of phosphorus metabolism Diagnosis: Principal (5) Hypertension ICD Code: I10 - Essential (primary) hypertension Diagnosis: Secondary Procedures No invasive procedures. Brief History - From Admission Patient is a 52-year-old male who presented to the [facility] emergency department via EMS as a stroke alert. While at work patient felt dizzy and had difficulty using left upper extremity. This progressed to numbness and tingling of the left side of the body with associated difficulty walking. Patient states that he had been taking lisinopril prior for hypertension but discontinued it by himself several years ago due to lack of insurance. He occasionally checks his blood pressure at home last checked 1 month ago it was 210/110 approximately, but he did not seek any treatment as he felt fine. In the ER initial blood pressure was 236/120. Neurology Dr. Valero was also informed about stroke alert. A stat CT of the head showed acute 17 mm right thalamic hemorrhage. Cardene was initiated and titrated up to keep systolic blood pressure less than 140/90. Neurosurgery Dr. Nguyen was also consulted. I evaluated the patient in the ED. Currently patient remains on Cardene infusion, his blood pressure control is better. He feels left upper extremity strength may be improved slightly. I explained to him that more than likely management will be medical unless there is expansion of the bleed or intraventricular extension. A repeat CT of the head will be performed tomorrow. His platelet count and coags are normal at this time CBC/BMP: 09/25/17 0441 09/25/17 0441 Significant Findings Laboratory Tests Test 09/23/17 03:14 09/23/17 11:21 09/23/17 14:23 09/25/17 04:41 White Blood Count 12.0 TH/MM3 (4.0-11.0) Neutrophils (%) (Auto) 72.3 % (16.0-70.0) Neutrophils # (Auto) 8.7 TH/MM3 (1.8-7.7) Potassium Level 3.4 MEQ/L (3.5-5.1) 3.3 MEQ/L (3.5-5.1) Phosphorus Level 2.0 MG/DL (2.5-4.9) Monocytes (%) (Auto) 10.0 % (0.0-8.0) Monocytes # (Auto) 1.0 TH/MM3 (0-0.9) Estimat Glomerular Filtration Rate 86 ML/MIN (>89) Imaging Last Impressions Head CT 09/23/17 0000 Signed Impressions: Service Date/Time: Saturday, September 23, 2017 09:00 - CONCLUSION: Evolving parenchymal hemorrhage right thalamus 1.6 cm stable Benny Greene MD FACR Neck CTA 09/22/17 0000 Signed Impressions: Service Date/Time: Friday, September 22, 2017 17:57 - CONCLUSION: Unremarkable exam with no evidence of stenosis or occlusion. Bob Rudolph MD Head CTA 09/22/17 0000 Signed Impressions: Service Date/Time: Friday, September 22, 2017 17:57 - CONCLUSION: No vascular abnormality. Bob Rudolph MD Hospital Course Patient found to have elevated blood pressures on admission with systolics in the 200s. This improved with addition of blood pressure medications. Head CT on admission showed parenchymal hemorrhage of the right thalamus. Repeat CT showed stable. Neurosurgery followed during admission, and has cleared for discharge. Patient did report left-sided weakness, and has been seen by physical therapy. It is advised that patient discontinue use alcohol altogether. For problem based summary from most recent progress note, please see below. //Acute right thalamic hemorrhage //Left hemiparesis, improved //Daily alcohol use -Frequent neuro checks per [facility]SC protocol -Repeat CT of the head today. Neurosurgery Dr. Nguyen -Supplement thiamine watch for alcohol withdrawal -No indication for seizure prophylaxis -Avoid hyponatremia hyperthermia = Recheck labs tomorrow. Appreciate neurosurgery assistance. Likely getting go home with home health when cleared by neurosurgery. Continue to monitor blood pressure. = Will add clonidine 3 times daily for blood pressure control. Follow-up with primary care, neurosurgery as outpatient. //Hypertensive emergency //History of hypertension -Off Cardene infusion -Keep systolic blood pressure less than 140 diastolic less than 90 -Lisinopril 10 mg p.o. twice daily, HCTZ 25 mg daily -Need 2D echo, can be done outpatient = Follow-up with primary care and neurosurgery. We will need to obtain 2D echo as outpatient. //Hypokalemia //Hypophosphatemia -Electrolyte replacement protocol = 09/24. Improved. Recheck tomorrow. = Mild hypokalemia. Expect to improve with regular diet. Follow-up primary care as outpatient. //Tobacco abuse. Counselled to quit smoking //Alcohol abuse. Patient drinks a pint of rum every day. Suspect that uncontrolled hypertension was secondary to alcohol withdrawal. Cessation counseling provided. Patient says he will not drink anymore. PROPH: -Bilateral lower extremity SCDs/FROILAN. PO famotidine. Chemical DVT prophylaxis is contraindicated Pt Condition on Discharge: Good Discharge Disposition: Disch w/ Home Health Serv Discharge Time: > 30 minutes Discharge Instructions DIET: Follow Instructions for: Heart Healthy Diet Activities you can perform: Regular-No Restrictions Activities to Avoid: Strenuous Activity Follow up Referrals: Neurosurgery - 1 Week with Clark Nguyen MD PCP Follow-up - 1 Week with [facility] New Medications: Clonidine (Clonidine) 0.1 Mg Tab 0.1 MG PO TID for Blood Pressure Management, #60 TAB 0 Refills Walker with Front Wheels (Walker with Front Wheels) 1 Mis Mis EA .XX DIRECTED, #1 0 Refills Hydrochlorothiazide (Hydrochlorothiazide) 12.5 Mg Cap 12.5 MG PO DAILY for Blood Pressure Management for 30 Days, #30 CAP Lisinopril (Lisinopril) 10 Mg Tab 10 MG PO Q12HR for Blood Pressure Management for 30 Days, TAB Claudio Jolley MD Sep 25, 2017 13:59
[2017-09-25] MEDS ORDERED: cloNIDine HCL 0.1 MG TAB PO SCH (14:00)
== END 2017-09-25 17:40 | disposition home health service (06) | DRG 65 ==
LOC: NEPC 10:49 → NEDA 11:58 → NEDH 16:55 → N03A 20:29 → N03B 09-23 20:24
PROVIDERS: ADMIT Internal Medicine; ATTEND Internal Medicine
DX: I61.8 Other nontraumatic intracerebral hemorrhage (principal); I16.1 Hypertensive emergency; G81.94 Hemiplegia, unspecified affecting left nondominant side; I10 Essential (primary) hypertension; E83.39 Other disorders of phosphorus metabolism; E87.6 Hypokalemia; R29.704 NIHSS score 4; F17.210 Nicotine dependence, cigarettes, uncomplicated; F10.10 Alcohol abuse, uncomplicated; Z91.14 Patient's other noncompliance with medication regimen
CPT/HCPCS: 70450; 70496; 70498; 80048; 80053; 80069; 80307; 81001; 82550; 83735; 84100; 84132; 84484; 85025; 85384; 85610; 85730; 86850; 86900; 86901; 87641; 93005; 96365; 96375; J0360; J3411; J3480; J7030; J7050; Q9967

== ENCOUNTER 2017-10-07 17:39 | Emergency (ER) | payer SELFPAY ==
[~2017-10-07 17:39] MED LIST changes: +HYDR12.57 PO; -LEVA750T PO; +LISI10TA3 PO; +WALKER WHEELS/F1 MIS
[2017-10-07 17:40] VITALS: BP 158/94; PULSE 80; RESP 16; TEMP 98.7; O2SAT 96
[2017-10-07] MEDS ORDERED: SODIUM CHLORIDE 0.9% FLUSH 10 ML FLUSH IVF PRN (18:00)
[2017-10-07 18:04] VITALS: O2SAT 96
[2017-10-07 18:10] LABS: AUTOMATED NEUTROPHIL # 7.1 TH/MM3 (1.8-7.7); BASOPHIL # 0.2 TH/MM3 (0-0.2); BASOPHIL % 1.4 % (0.0-2.0); EOSINOPHIL # 0.3 TH/MM3 (0-0.4); EOSINOPHIL % 2.6 % (0.0-4.0); HEMATOCRIT 45.7 % (39.0-51.0); HEMOGLOBIN 15.5 GM/DL (13.0-17.0); LYMPH % 24.9 % (9.0-44.0); LYMPHOCYTE # 2.7 TH/MM3 (1.0-4.8); MEAN CELL VOLUME 91.6 FL (80.0-100.0); MEAN CORPUSCULAR HGB CONC 33.9 % (32.0-36.0); MEAN PLATELET VOLUME 8.7 FL (7.0-11.0); MONO % 4.8 % (0.0-8.0); MONOCYTE # 0.5 TH/MM3 (0-0.9); NEUT % 66.3 % (16.0-70.0); PLATELET COUNT 334 TH/MM3 (150-450); RED BLOOD COUNT 4.99 MIL/MM3 (4.50-5.90); RED CELL DISTRIBUTION WIDTH 11.3 % (11.6-17.2); WHITE BLOOD COUNT 10.8 TH/MM3 (4.0-11.0)
[2017-10-07 18:19] LABS: CHLORIDE 102 MEQ/L (98-107); SODIUM (NA) 139 MEQ/L (136-145)
[2017-10-07 18:22] LABS: CALCIUM 9.7 MG/DL (8.5-10.1)
[2017-10-07 18:23] LABS: ALBUMIN 3.9 GM/DL (3.4-5.0); BICARBONATE 30.8 MEQ/L (21.0-32.0); BLOOD UREA NITROGEN 14 MG/DL (7-18); GLUCOSE,RANDOM 100 MG/DL (74-106); MAGNESIUM 2.2 MG/DL (1.5-2.5)
--- NOTE | 2017-10-07 18:24 | PD ---
HPI Chief Complaint: Chest Pain Time Seen by Provider: 17:49 Travel History International Travel<30 days: No Contact w/Intl Traveler<30days: No Traveled to known affect area: No History of Present Illness HPI 52-year-old man who presents to the emergency department for evaluation for pressure and discomfort on his left chest ongoing for a couple days. Patient had a recent right thalamic hemorrhagic infarct with resulting left-sided weakness. He left the hospital toward the beginning of the month. He has persistent left-sided weakness although he has been recovering well. He is able to walk. He states he has had this left-sided discomfort involving the chest and the abdomen that radiates into the arm neck and into the leg. He felt this was mostly from the resolving stroke however today started experiencing some shortness of breath with worsening chest discomfort. Discomfort is not clearly related to exertion or eating. He has never had a prior to this. He otherwise had been feeling generally well and healthy before the stroke. History Past Medical History Narrative Medical Right thalamic ICH residual left-sided weakness Hypertension History of daily alcohol intake, recently stopped Tobacco use Social History Alcohol Use: Yes (occ) Tobacco Use: Yes (1-2 cig day) Allergies-Medications (Allergen,Severity, Reaction): Coded Allergies: No Known Allergies (Verified Adverse Reaction, Unknown, 09/22/17) Reported Meds & Prescriptions Reported Meds & Active Scripts Active Clonidine (Clonidine HCl) 0.1 Mg Tab 0.1 Mg PO TID Lisinopril 10 Mg Tab 10 Mg PO Q12HR 30 Days Hydrochlorothiazide 12.5 Mg Cap 12.5 Mg PO DAILY 30 Days Review of Systems Except as stated in HPI: all other systems reviewed are Neg Physical Exam Narrative GENERAL: Well-appearing 52-year-old man, no acute distress. SKIN: Focused skin assessment warm/dry. HEAD: Atraumatic. Normocephalic. EYES: Pupils equal and round. No scleral icterus. No injection or drainage. ENT: No nasal bleeding or discharge. Mucous membranes pink and moist. NECK: Trachea midline. No JVD. CARDIOVASCULAR: Regular rate and rhythm. No murmur appreciated. RESPIRATORY: No respiratory distress. Rales in the posterior inferior lung leahy. GASTROINTESTINAL: Abdomen soft, non-tender, nondistended. Hepatic and splenic margins not palpable. MUSCULOSKELETAL: No obvious deformities. Weakness on the left side. NEUROLOGICAL: Awake and alert. Left-sided facial droop. Gume left-sided weakness in the upper and lower extremities. Sensations decreased on the left side. Normal speech. PSYCHIATRIC: Appropriate mood and affect; insight and judgment normal. Data Data Last Documented VS Vital Signs Date Time Temp Pulse Resp B/P (MAP) Pulse Ox O2 Delivery O2 Flow Rate FiO2 10/07/17 20:50 68 16 130/89 (103) 96 Room Air 10/07/17 17:40 98.7 Orders Orders Electrocardiogram (10/07/17 17:57) B-Type Natriuretic Peptide (10/07/17 17:57) Ckmb (Isoenzyme) Profile (10/07/17 17:57) Complete Blood Count With Diff (10/07/17 17:57) Comprehensive Metabolic Panel (10/07/17 17:57) D-Dimer (10/07/17 17:57) Magnesium (Mg) (10/07/17 17:57) Prothrombin Time / Inr (Pt) (10/07/17 17:57) Act Partial Throm Time (Ptt) (10/07/17 17:57) Troponin I (10/07/17 17:57) Ecg Monitoring (10/07/17 17:57) Iv Access Insert/Monitor (10/07/17 17:57) Oximetry (10/07/17 17:57) Oxygen Administration (10/07/17 17:57) Sodium Chloride 0.9% Flush (Ns Flush) (10/07/17 18:00) Chest, Pa & Lat (10/07/17 17:57) Ct Pulmonary Angiogram (10/07/17 ) Iohexol 350 Inj (Omnipaque 350 Inj) (10/07/17 20:49) Labs Laboratory Tests Test 10/07/17 18:00 White Blood Count 10.8 TH/MM3 Red Blood Count 4.99 MIL/MM3 Hemoglobin 15.5 GM/DL Hematocrit 45.7 % Mean Corpuscular Volume 91.6 FL Mean Corpuscular Hemoglobin 31.0 PG Mean Corpuscular Hemoglobin Concent 33.9 % Red Cell Distribution Width 11.3 % Platelet Count 334 TH/MM3 Mean Platelet Volume 8.7 FL Neutrophils (%) (Auto) 66.3 % Lymphocytes (%) (Auto) 24.9 % Monocytes (%) (Auto) 4.8 % Eosinophils (%) (Auto) 2.6 % Basophils (%) (Auto) 1.4 % Neutrophils # (Auto) 7.1 TH/MM3 Lymphocytes # (Auto) 2.7 TH/MM3 Monocytes # (Auto) 0.5 TH/MM3 Eosinophils # (Auto) 0.3 TH/MM3 Basophils # (Auto) 0.2 TH/MM3 CBC Comment DIFF FINAL Differential Comment Prothrombin Time 10.6 SEC Prothromb Time International Ratio 1.0 RATIO Activated Partial Thromboplast Time 25.6 SEC D-Dimer Quantitative (PE/DVT) 2.09 MG/L FEU Blood Urea Nitrogen 14 MG/DL Creatinine 1.00 MG/DL Random Glucose 100 MG/DL Total Protein 8.2 GM/DL Albumin 3.9 GM/DL Calcium Level 9.7 MG/DL Magnesium Level 2.2 MG/DL Alkaline Phosphatase 74 U/L Aspartate Amino Transf (AST/SGOT) 12 U/L Alanine Aminotransferase (ALT/SGPT) 33 U/L Total Bilirubin 0.4 MG/DL Sodium Level 139 MEQ/L Potassium Level 3.8 MEQ/L Chloride Level 102 MEQ/L Carbon Dioxide Level 30.8 MEQ/L Anion Gap 6 MEQ/L Estimat Glomerular Filtration Rate 79 ML/MIN Total Creatine Kinase 69 U/L Troponin I LESS THAN 0.02 NG/ML B-Type Natriuretic Peptide 11 PG/ML MDM Medical Decision Making Medical Screen Exam Complete: Yes Emergency Medical Condition: Yes Interpretation(s) My review of EKG: Normal sinus rhythm at a rate of 78, normal axis, normal intervals, he has some inferior ST changes and T-wave inversions, the T-wave inversions in 3 are different from his previous one on September 22, but overall EKGs are unchanged. He did have some inferior nonspecific changes previously. LABS: CBC is unremarkable. CMP is unremarkable Troponins negative BNP is 11 Coags unremarkable D-dimer 2.09 Chest x-ray: Mild interstitial opacities with elevation of the left hemidiaphragm, by report chronic. No acute abnormality demonstrated. CT pulmonary angiogram: No PE. Mild bibasilar atelectasis. Mild chronic interstitial changes. Chronic left hemidiaphragm elevation. Coronary artery calcification. Differential Diagnosis Sensory changes from thalamic infarct, ACS, PE, heart failure from ICH, other Narrative Course Medical decision making Is a 52-year-old man presents to the emergency department with left-sided sensory discomfort and chest pain that radiates in the abdomen arm and neck. This seems to correlate timewise with his stroke, but difficult to fully exclude heart disease. He also has some shortness of breath and has rales on exam and the possibility of a stress-induced cardiomyopathy is considered as well. PE also possible given recent hospitalization and stroke. Will check labs, BMP and d-dimer, chest x-ray, reassess. FINAL: Workups been negative. I do not think this is ACS. Affects his stomach and his shoulder and throughout the left side and appears to correspond with the onset of his thalamic stroke which could have sensory changes with it. At this point would recommend outpatient follow-up. Patient is agreeable. Does agree to return for any worsening symptoms or exertional symptoms. Diagnosis Primary Impression: Left sided chest pain Patient Instructions: General Instructions Additional Instructions: Follow-up with your primary doctor in the next 2-4 days. Return to the emergency department for any worsening chest pain, if you chest pain is worse with exertion at all, or if you develop any other new or worsening symptoms. Med/Other Pt SpecificInfo: No Change to Meds Disposition: 01 DISCHARGE HOME Condition: Stable Raman Dutta MD Oct 07, 2017 18:24
[2017-10-07 18:26] LABS: ALT (GPT) 33 U/L (12-78); AST (GOT) 12 U/L (15-37); GLOMERULAR FILTRATION RATE 79 ML/MIN (>89)
[2017-10-07 18:28] LABS: TOTAL BILIRUBIN ADULT 0.4 MG/DL (0.2-1.0); TOTAL PROTEIN 8.2 GM/DL (6.4-8.2)
[2017-10-07 18:29] LABS: ALKALINE PHOSPHATASE 74 U/L (45-117)
[2017-10-07 18:31] LABS: TROPONIN I LESS THAN 0.02 NG/ML (0.02-0.05)
--- NOTE | 2017-10-07 18:36 | RADRPT ---
EXAM DATE/TIME: 10/07/2017 18:12 [facility] COMPARISON: Report only CHEST SINGLE AP, November 02, 2011, 11:05. INDICATIONS : Chest pain. MEDICAL HISTORY : Cardiovascular disease. Hypertension. Bleed. SURGICAL HISTORY : None. ENCOUNTER: Initial ACUITY: 1 day PAIN SCORE: 4/10 LOCATION: Bilateral chest FINDINGS: Mild chronic appearing bilateral interstitial opacities are present, mainly in the periphery of both lungs. There is elevation of the left hemidiaphragm. These findings have been described previously. N o acute infiltrates seen. No pleural effusion or pneumothorax. Heart size within normal limits. CONCLUSION: Mild interstitial opacities and elevation of the left hemidiaphragm, by report chronic. No acute abno rmality demonstrated. Juan Santos MD on October 07, 2017 at 18:32 Board Certified Radiologist. This report was verified electronically.
[2017-10-07 18:55] LABS: PROTHROMBIN TIME - PATIENT 10.6 SEC (9.8-11.6)
[2017-10-07 18:57] LABS: D-DIMER 2.09 MG/L FEU (0.00-0.50)
[2017-10-07 19:00] VITALS: BP 121/88; PULSE 80; RESP 18; O2SAT 97
[2017-10-07 19:57] VITALS: BP 135/84; PULSE 69; RESP 16; O2SAT 96
[2017-10-07] MEDS ORDERED: IOHEXOL 350 MG/ML 10 ML VIAL (for RAD DIAG) IVCONTRAST ONE (20:49)
[2017-10-07 20:50] VITALS: BP 130/89; PULSE 68; RESP 16; O2SAT 96
--- NOTE | 2017-10-07 21:01 | RADRPT ---
EXAM DATE/TIME: 10/07/2017 20:37 [facility] COMPARISON: CHEST PA & LAT, October 07, 2017, 18:12. Report only CHEST SINGLE AP, November 02, 2011, 11:05. INDICATIONS : Chest tightness for one week. IV CONTRAST: 65 cc Omnipaque 350 (iohexol) IV RADIATION DOSE: 20.99 CTDIvol (mGy) MEDICAL HISTORY : Cerebrovascular disease. Hypertension. SURGICAL HISTORY : None. ENCOUNTER: Initial ACUITY: 1 week PAIN SCALE: 0/10 LOCATION: chest TECHNIQUE: Volumetric scanning of the chest was performed using a pulmonary embolism protocol MIP images were re constructed. Using automated exposure control and adjustment of the mA and/or kV according to patien t size, radiation dose was kept as low as reasonably achievable to obtain optimal diagnostic quality images. DICOM format image data is available electronically for review and comparison. Follow-up recommendations for detected pulmonary nodules are based at a minimum on nodule size and pa tient risk factors according to Fleischner Society Guidelines. FINDINGS: PULMONARY ARTERIES: No filling defects are seen in the pulmonary arteries through the segmental level. LUNGS: Trace atelectasis both bases. Also mild subpleural chronic interstitial opacities of both lungs. Ther e is chronic elevation/eventration of the left hemidiaphragm. PLEURAE: There is no pleural thickening or pleural effusion. MEDIASTINUM: There is good visualization of the great vessels of the middle mediastinum. No evidence of mediastin al or hilar adenopathy/mass. Normal heart size. There is coronary artery calcification, most conspicu ous of the left anterior descending. MUSCULOSKELETAL: Within normal limits for patient age. MISCELLANEOUS: The visualized upper abdominal organs demonstrate no acute abnormality. CONCLUSION: 1. No pulmonary embolus. 2. Mild bibasilar atelectasis. 3. Mild chronic interstitial changes. 4. Chronic left hemidiaphragm elevation. 5. Coronary artery calcification. Juan Santos MD on October 07, 2017 at 20:57 Board Certified Radiologist. This report was verified electronically.
[2017-10-07 21:24] VITALS: BP 153/89
--- NOTE | 2017-10-08 16:24 | EKG ---
Date Performed: 10/07/2017 Time Performed: 17:43:08 PTAGE: 52 years EKG: Sinus rhythm POSSIBLE LEFT ATRIAL ENLARGEMENT NONSPECIFIC T-WAVE ABNORMALITY BORDERLINE ECG PREVIOUS TRACING : 09/22/2017 11.12 Since the previous tracing, no significant change noted DOCTOR: Isaiah Tomlin Interpretating Date/Time 10/08/2017 16:23:06
== END 2017-10-07 21:44 | disposition home or self-care (01) ==
LOC: PHED 17:39
DX: R07.89 Other chest pain (principal); R06.02 Shortness of breath; I10 Essential (primary) hypertension; F17.210 Nicotine dependence, cigarettes, uncomplicated; Z79.899 Other long term (current) drug therapy
CPT/HCPCS: 71046; 71275; 80053; 82550; 83735; 83880; 84484; 85025; 85379; 85610; 85730; 93005; 99285; Q9967